=== PATIENT | male | born 1955 | race Caucasian/White ===

== ENCOUNTER 2017-04-14 05:51 | Day surgery (SDC) | payer OTHER ==
[2017-04-11 13:52] VITALS: BMI 39.8
[2017-04-14] MEDS ORDERED: Diazepam 5 MG TAB ONE (06:50)
[2017-04-14] MEDS ORDERED: Midazolam HCl 2 mg/2 ml Vial ONE (07:05)
[2017-04-14] MEDS ORDERED: Fentanyl 100 MCG/2 ML VIAL ONE (07:05)
[2017-04-14] MEDS ORDERED: Heparin 10,000 UNITS/1 ML VIAL ONE ×3 (07:44→08:37)
[2017-04-14] MEDS ORDERED: Clopidogrel Bisulfate 300 MG TAB ONE (07:50)
[2017-04-14] MEDS ORDERED: PROVENTIL INHALER 6.7 G (200 INHALATIONS) INH PRN (12:12)
[2017-04-14] MEDS ORDERED: Diazepam 5 MG TAB PO SCH (12:30)
[2017-04-14] MEDS ORDERED: Allopurinol 300 MG TAB PO SCH ×2 (13:45→21:00)
[2017-04-14] MEDS ORDERED: Gabapentin 300 MG CAP PO SCH ×2 (13:45→21:00)
[2017-04-14] MEDS ORDERED: Clopidogrel Bisulfate 75 MG TAB PO SCH (13:45)
[2017-04-14] MEDS ORDERED: Aspirin 325 MG TAB PO SCH (13:45)
[2017-04-14] MEDS ORDERED: Sacubitril 24.5 MG/Valsartan 25.5 MG TABLET PO SCH ×2 (13:45→21:00)
[2017-04-14] MEDS ORDERED: Iopamidol 370 76% 100 ML VIAL ONE (14:09)
[2017-04-14] MEDS ORDERED: Iopamidol 370 76% 50 ML VIAL FS ONE (14:09)
[2017-04-14] MEDS ORDERED: Mometasone/Formoterol 120 PUFF INHALER INH SCH (18:30)
[2017-04-14] MEDS ORDERED: Potassium Chloride 8 MEQ TAB PO SCH (21:00)
[2017-04-14] MEDS ORDERED: Rosuvastatin 20 MG TAB PO SCH (21:00)
[2017-04-14] MEDS ORDERED: Bumetanide 1 MG TAB PO SCH (21:00)
--- NOTE | 2017-04-14 22:08 | EKG ---
Test Reason : POST STENT Blood Pressure : / mmHG Vent. Rate : 067 BPM Atrial Rate : 067 BPM P-R Int : 182 ms QRS Dur : 100 ms QT Int : 406 ms P-R-T Axes : 079 072 -56 degrees QTc Int : 429 ms Sinus rhythm with Premature atrial complexes with Abberant conduction Nonspecific ST and T wave abnormality Abnormal ECG When compared with ECG of 11-APR-2017 14:11, (Unconfirmed) Abberant conduction is now Present Nonspecific T wave abnormality has replaced inverted T waves in Lateral leads Confirmed by GUEVARA PATEL, DR. Smith ([id number]) on 04/14/2017 10:08:29 PM Referred By: SKYLER Confirmed By:DR. Sarah WATERMAN MD
[2017-04-15] MEDS ORDERED: Clopidogrel Bisulfate 75 MG TAB PO SCH (09:00)
[2017-04-15] MEDS ORDERED: Aspirin 325 MG TAB PO SCH (09:00)
== END 2017-04-14 19:18 | disposition home or self-care (01) ==
LOC: CCL 05:51 → 2SW 12:00 → UNDOADMOB 12:00 → CCL 19:18
PROVIDERS: ATTEND Internal Medicine Cardiovascular Disease
DX: I25.119 Atherosclerotic heart disease of native coronary artery with unspecified angina pectoris (principal); I11.0 Hypertensive heart disease with heart failure; I50.9 Heart failure, unspecified; E78.5 Hyperlipidemia, unspecified; Z79.82 Long term (current) use of aspirin; Z79.899 Other long term (current) drug therapy; Z87.891 Personal history of nicotine dependence
CPT/HCPCS: 76942; 80061; 85347; 92928; 93005; 93455; 99152; 99153; C1769; C1874; C1887; C9600; J1644; J2250; J3010

== ENCOUNTER 2018-06-08 18:42 | Inpatient (IN) | payer OTHER, MEDICARE ==
[2018-06-08] MEDS ORDERED: Diltiazem 125 MG/25 ML ONE (19:22)
[2018-06-08] MEDS ORDERED: Aspirin 325 MG TAB ONE (19:22)
[2018-06-08 19:26] LABS: #Eosinphils 0.2 thou/uL (0.0-0.7); #Lymphocytes 1.5 thou/uL (1.20-3.40); #Monocytes 0.5 thou/uL (0.11-0.59); #Neutrophils 4.5 thou/uL (1.40-6.50); %Basophils 0.7 % (0.0-1.0); %Lymphocytes 22.4 % (21.0-51.0); Hemoglobin 13.2 g/dL (14.0-18.0); Mean Corpuscular HGB CONC 33.3 g/dL (32.0-36.0); Mean Corpuscular Hemoglobin 31.2 pg (27.0-31.0); Mean Corpuscular Volume 93.7 fL (78.0-98.0); Mean Platelet Volume 9.8 fL (7.4-10.4); Platelet Count 120 thou/uL (130-400); RBC Distribution Width 13.1 % (11.5-14.5); Red Blood Cell (RBC) Count 4.23 mill/uL (4.70-6.10); White Blood Cell (WBC) Count 6.8 thou/uL (4.8-10.8)
--- NOTE | 2018-06-08 19:26 | RAD ---
PORTABLE CHEST: 06/08/2018 PROVIDED CLINICAL HISTORY: Atrial fibrillation. COMPARISON: None. FINDINGS: The cardiac silhouette appears enlarged. Median sternotomy changes and CABG changes are seen. No fo bee consolidation, pleural fluid, or pneumothorax apparent. IMPRESSION: Cardiomegaly without evidence for an acute cardiopulmonary process. POS: PAULO
[2018-06-08 19:41] LABS: ALT (SGPT) 36 U/L (8-55); AST (SGOT) 21 U/L (5-34); Albumin 4.2 g/dL (3.4-4.8); Alkaline Phosphatase 186 U/L (40-150); Anion Gap 14 mmol/L (10-20); BUN (Urea Nitrogen) 30 mg/dL (8.4-25.7); Bilirubin, Total 1.7 mg/dL (0.2-1.2); Calc. Creatinine Clearance 0 mL/min (70-130); Calcium 9.1 mg/dL (7.8-10.44); Carbon Dioxide 23 mmol/L (23-31); Chloride 104 mmol/L (98-107); Estimated GFR-MDRD 52; Globulin 3.1 g/dL (2.4-3.5); Glucose 128 mg/dL (80-115); Potassium 3.5 mmol/L (3.5-5.1); Protein, Total 7.3 g/dL (5.8-8.1); Sodium 137 mmol/L (136-145)
[2018-06-08 23:28] LABS: Troponin I Less than 0.010 ng/mL (< 0.028)
[2018-06-09] MEDS ORDERED: Digoxin 0.5 MG/2 ML AMP ONE (01:40)
[2018-06-09] MEDS ORDERED: Acetaminophen 325 MG TAB PO PRN (01:51)
[2018-06-09] MEDS ORDERED: Furosemide 20 MG/2 ML VIAL SLOW IVP SCH (02:15)
[2018-06-09 02:33] LABS: Troponin I Less than 0.010 ng/mL (< 0.028)
[2018-06-09] MEDS ORDERED: Furosemide 20 MG/2 ML VIAL ONE (02:49)
--- NOTE | 2018-06-09 04:27 | HP ---
CHIEF COMPLAINT: Arm injury following up on atrial fibrillation. HISTORY OF PRESENT ILLNESS: The patient is a 63-year-old male who has a significant history of coronary artery disease, who is followed by Dr. Johnson. The patient was in his usual state of health and was working to get a tractor off trailer when he slipped on the trailer and fell and injured his right arm. The patient had basically looks like skin tear area to the right forearm. He decided to not pursue treatment on that initially, but following morning realized that it looked pretty bad, so he presented to the emergency department in [place]. There, the patient was noted to be in atrial fibrillation with rapid ventricular response. They encouraged the patient to be admitted. However, he decided he wanted to follow up as an outpatient. He initially tried to present to Dr. Johnson's office but was unable to get any quickly, so he saw his PCP, Dr. Roblero. Dr. Roblero then sent him directly to the emergency department for atrial fibrillation with rapid ventricular response. The patient reports that he is completely asymptomatic and would have no idea that he had anything wrong with them if he had not presented for the arm situation. He does report that every once in a while he gets very mild dizzy episode, but made nothing of it. It has been very brief. It has been going on for a good while. The patient absolutely denies any chest pains. He has minimal dyspnea on exertion. He does admit to having significant chronic peripheral edema, which has been treated intermittently with varying amounts of diuretics but reports that it has gotten worse over the last several days. PAST MEDICAL HISTORY: Notable for significant coronary artery disease, status post bypass and subsequent stenting, hyperlipidemia, hypertension, tobacco abuse, looks like probably some COPD as well. He also has a history of atrial flutter diagnosed in 2012. FAMILY HISTORY: No significant cardiac disease. SOCIAL HISTORY: The patient is , lives with his . He has a history of smoking, but quit a number of years ago. He reports he drinks about a 12-pack of beer each weekend, but generally nothing on weekdays. He is full code and his to be a surrogate decision maker. ALLERGIES: NONE. MEDICATIONS: 1. Lisinopril 10 mg daily. 2. Allopurinol 300 mg b.i.d. 3. Gabapentin 300 mg b.i.d. 4. Valsartan 160 mg daily. 5. Potassium 10 mEq b.i.d. 6. Coreg 25 mg b.i.d. 7. Zetia 10 mg daily. 8. Plavix 75 mg daily. 9. Bumex 2 mg b.i.d. 10. ProAir HFA inhaled q.i.d. p.r.n. 11. Advair Diskus 500/50, one inhalation b.i.d. 12. Symbicort 160-4.5 mcg actuations b.i.d. 13. Entresto, unclear on the dose, twice a day. PHYSICAL EXAMINATION: VITAL SIGNS: Initially, patient's heart rate was 128, BP 129/97, respirations 18, O2 saturation 100% on room air, and temperature 98.3. Most recent, BP 98/77, pulse 123, respirations 15, O2 saturation 98% on room air. GENERAL APPEARANCE: Age-appropriate male, who is awake, alert, oriented, pleasant, cooperative, in no distress. HEENT: PERRL. No OP lesions. NECK: Supple and symmetric. HEART: Tachycardic, irregular, slightly hyperdynamic with no murmurs or rubs. LUNGS: Diminished throughout with some scattered rales. ABDOMEN: Soft, nontender, and nondistended. Positive bowel sounds. No masses. No organomegaly. EXTREMITIES: Have 2+ pitting edema all the way up to the level of the knee bilaterally. NEUROLOGIC: The patient is intact. He has no evidence of localizing deficits. PSYCHIATRIC: The patient has normal affect and behavior. SKIN: Tear type lesions in the right forearm, generally well dressed with bandaging. EKG, atrial fibrillation at 120s. No ischemic changes. LABORATORY DATA: White count 6.8, hemoglobin 13.2, platelets 120. Sodium 137, potassium 3.5, chloride 104, CO2 of 23, BUN 30, creatinine 1.38, total bilirubin is 1.7, glucose 128, alkaline phosphatase 186. BNP 380.7. Chest x-ray shows cardiomegaly without evidence of acute cardiopulmonary disease. IMPRESSION AND PLAN: 1. Atrial fibrillation with rapid ventricular response. The patient is completely asymptomatic. He has a history of significant coronary artery disease, status post bypass with subsequent requirement for stenting. He was noted to have decreased ejection fraction as far back as 2011 at 30% to 35%. It is unknown it is subsequent to that as I do not have any records otherwise. The patient has been started on a Cardizem drip. He had a bolus and is at 10 mg an hour. His pressure is now in the 90s, but his heart rate has not really improved. We will give him one dose of digoxin and see how he respond. May need to consider an amiodarone drip. We will go ahead and start him on some heparin given his current renal function and get a cardiology consult. 2. Pulmonary. The patient appears to have some chronic obstructive pulmonary disease, is on multiple inhaled medications. He appears to be quite stable, is asymptomatic and well compensated. 3. Chronic kidney disease, stage 3. The patient's creatinine is highly variable, but it looks most consistent with stage 3 chronic kidney disease. 4. Hyperbilirubinemia. This appears to be longstanding and chronic, mild, and likely benign. 5. Hypertension. Continue with the patient's home medications. He is on valsartan and lisinopril. We will hold on the lisinopril for now given his blood pressure issues. 6. Peripheral edema, unclear etiology. It appears to be chronic and long-standing, slightly worse of late. He is on diuretics routinely at home. I will actually hold that and give him a dose of IV as it is significant at the moment. His BNP is not substantially elevated suggesting that this is not decompensated heart failure, although that is still a possibility. 7. Hyperlipidemia. Continue with Zetia. 8. Right forearm injury. We will ask Wound Care to see him for any recommendations. Job ID: [id number]
[2018-06-09] MEDS: Budesonide 0.5 MG/2 ML NEB INH SCH ×2 (07:13→19:03)
[2018-06-09] MEDS: Carvedilol 25 MG TAB PO SCH ×2 (09:28→16:43)
[2018-06-09] MEDS: Gabapentin 300 MG CAP PO SCH ×2 (09:29→20:38)
[2018-06-09] MEDS: Valsartan 80 MG TAB PO SCH (09:30)
[2018-06-09] MEDS: Sacubitril 24.5 MG/Valsartan 25.5 MG TABLET PO SCH ×2 (09:30→20:38)
--- NOTE | 2018-06-09 09:48 | PRG ---
Same day follow up note: DATE OF SERVICE: 06/09/2018 SUBJECTIVE: The patient is seen/evaluated at 9:15 a.m. this morning, remained in the emergency department with a hold bed. Presently, on Cardizem 5 mg/hour, heart rate at low 100s, hemodynamically stable. He is comfortable, denies chest pain/chest pressure/dyspnea. He feels sore over his right arm. No nausea, no vomiting. I spoke with the bedside nurse, confirmed request for cardiac consultation today. The patient recalls in the past with atrial tachyarrhythmias, is not presently on long-term anticoagulation. He does take antiplatelet therapy with Plavix. Currently, holding orders with heparin 5000 units subcutaneously 3 times per day. No further questions at the end of our interview this morning. OBJECTIVE: LUNGS: Overall clear. HEART: Irregularly irregular and mildly tachycardic. EXTREMITIES: Lower extremity edema is present, 2+. Right arm presently clean/dry/intact/dressed, with underlying skin tear present. Job ID: [id number] [facility]
[2018-06-09] MEDS: Heparin 5,000 UNITS/ML VIAL SC SCH ×3 (11:42→20:38)
[2018-06-09 13:05] VITALS: BMI 40.6
[2018-06-09] MEDS: Diltiazem 125 MG in Sodium Chloride 0.9% 100 ML IVPB SCH (20:38)
[2018-06-09] MEDS ORDERED: Diltiazem HCl SR 60 mg Capsule PO SCH (22:45)
[2018-06-10] MEDS ORDERED: Diltiazem HCl SR 60 mg Capsule PO SCH (06:00)
[2018-06-10] MEDS: Budesonide 0.5 MG/2 ML NEB INH SCH ×2 (07:35→18:57)
[2018-06-10] MEDS: Sacubitril 24.5 MG/Valsartan 25.5 MG TABLET PO SCH ×2 (08:25→20:53)
[2018-06-10] MEDS: Heparin 5,000 UNITS/ML VIAL SC SCH (08:25)
[2018-06-10] MEDS: Gabapentin 300 MG CAP PO SCH ×3 (08:26→20:53)
[2018-06-10] MEDS: Valsartan 80 MG TAB PO SCH (08:26)
[2018-06-10] MEDS: Carvedilol 25 MG TAB PO SCH ×2 (08:26→16:13)
[2018-06-10] MEDS ORDERED: Heparin 5,000 UNITS/ML VIAL SC SCH (09:00)
[2018-06-10] MEDS ORDERED: BUMETANIDE 1 MG PO SCH (09:00)
[2018-06-10] MEDS ORDERED: Ezetimibe 10 MG TAB PO SCH (09:00)
--- NOTE | 2018-06-10 09:40 | CON ---
DATE OF CONSULTATION: 06/09/2018 REASON FOR CONSULTATION: Atrial fibrillation. PRIMARY AVIATION MECHANIC: Evin Johnson MD HISTORY OF PRESENT ILLNESS: Mr. Crump is a 63-year-old gentleman with past medical history of paroxysmal atrial fibrillation, recently presented with arm injury. He presented to the outpatient clinic. He was found to be in atrial fibrillation with RVR. He was therefore recommended to proceed with inpatient observation. Mr. Crump does have a previous history of atrial fibrillation. He is currently not on anticoagulation therapy. He states he underwent an ablation in addition to a maze procedure. PAST MEDICAL HISTORY: CAD, status post bypass surgery; hyperlipidemia; hypertension; previous tobacco abuse; COPD. SOCIAL HISTORY: Positive tobacco use, but no current use. Positive alcohol use. ALLERGIES: NONE. HOME MEDICATIONS: Include, 1. Lisinopril. 2. Gabapentin. 3. Allopurinol. 4. Valsartan. 5. Potassium chloride. 6. Zetia. 7. Plavix. 8. Bumex. 9. ProAir. 10. Advair. 11. Symbicort. 12. Entresto. REVIEW OF SYMPTOMS: A 10-point review of systems is reviewed and as above, otherwise negative. PHYSICAL EXAMINATION: GENERAL: Patient is a pleasant 63-year-old male who is in no acute distress. The patient appears their stated age. VITAL SIGNS: Blood pressure 109/62, pulse 119, and respirations 20. NEUROLOGIC: The patient is alert and oriented x3 with no focal neurologic deficits. HEENT: Sclerae without icterus. Mouth has moist mucous membranes with normal pallor. NECK: No JVD. Carotid upstroke brisk. No bruits bilaterally. LUNGS: Clear to auscultation with unlabored respirations. BACK: No scoliosis or kyphosis. CARDIAC: Irregularly irregular. ABDOMEN: Soft, nontender, nondistended. No peritoneal signs present. No hepatosplenomegaly. No abnormal striae. EXTREMITIES: 2+ femoral and 2+ dorsalis pedis pulses. No cyanosis, clubbing, or edema. SKIN: No gross abnormalities. PERTINENT LABORATORY DATA: Hemoglobin 13.2. Creatinine 1.39. Total bilirubin 1.7. BNP of 380. IMPRESSION: 1. Atrial fibrillation with rapid ventricular response. 2. Coronary artery disease. 3. Status post bypass surgery. RECOMMENDATIONS: At this point, he is currently on IV Cardizem. We will continue. We will supplement with p.o. Cardizem. He is also on high-dose carvedilol at 25 mg one p.o. b.i.d. If he is not able to be rate controlled, may consider a DILSHAD cardioversion. He will likely need to be placed on amiodarone given history of CAD, status post bypass surgery. May also discuss with EP. Echo with Doppler has been ordered and will be reviewed. Job ID: [id number]
[2018-06-10] MEDS ORDERED: Bumetanide 1 MG/4 ML VIAL IVP SCH (09:45)
[2018-06-10 10:42] LABS: #Eosinphils 0.2 thou/uL (0.0-0.7); #Lymphocytes 1.4 thou/uL (1.20-3.40); #Monocytes 0.6 thou/uL (0.11-0.59); #Neutrophils 5.1 thou/uL (1.40-6.50); %Basophils 0.4 % (0.0-1.0); %Eosinophils 2.7 % (0.0-10.0); %Lymphocytes 18.8 % (21.0-51.0); %Monocytes 8.5 % (0.0-10.0); %Neutrophils 69.6 % (42.0-75.0); Hemoglobin 12.7 g/dL (14.0-18.0); Mean Corpuscular HGB CONC 33.1 g/dL (32.0-36.0); Mean Corpuscular Hemoglobin 31.4 pg (27.0-31.0); Mean Corpuscular Volume 94.7 fL (78.0-98.0); Mean Platelet Volume 9.3 fL (7.4-10.4); Platelet Count 128 thou/uL (130-400); RBC Distribution Width 13.2 % (11.5-14.5); Red Blood Cell (RBC) Count 4.06 mill/uL (4.70-6.10); White Blood Cell (WBC) Count 7.4 thou/uL (4.8-10.8)
[2018-06-10 10:56] LABS: Anion Gap 12 mmol/L (10-20); BUN (Urea Nitrogen) 14 mg/dL (8.4-25.7); Calc. Creatinine Clearance 150 mL/min (70-130); Calcium 9.4 mg/dL (7.8-10.44); Carbon Dioxide 27 mmol/L (23-31); Chloride 105 mmol/L (98-107); Estimated GFR-MDRD 75; Glucose 145 mg/dL (80-115); Magnesium 2.5 mg/dL (1.6-2.6); Potassium 3.7 mmol/L (3.5-5.1); Sodium 140 mmol/L (136-145)
[2018-06-10] MEDS: Rosuvastatin 20 MG TAB PO SCH (11:03)
[2018-06-10] MEDS: Allopurinol 300 MG TAB PO SCH ×2 (11:04→20:52)
[2018-06-10] MEDS: Ezetimibe 10 MG TAB PO SCH (11:04)
[2018-06-10] MEDS: Clopidogrel Bisulfate 75 MG TAB PO SCH (11:04)
[2018-06-10] MEDS: Bumetanide 1 MG TAB PO SCH (16:13)
--- NOTE | 2018-06-10 19:00 | PDOC.CTH ---
Cardiology Progress Note - Subjective No current symptoms present. Recent EF 30-35%. Still on IV CCB and coreg 25mg BID - Objective Vital Signs Temp Pulse Resp BP Pulse Ox 06/10/18 16:14 97.4 F L 74 18 123/73 96 06/10/18 11:12 97.4 F L 77 18 111/75 93 L 06/10/18 08:18 97.7 F 76 18 124/83 96 06/10/18 07:32 81 20 95 Admit Weight 317 lb Weight 317 lb 06/09/18 06/10/18 06/11/18 06:59 06:59 06:59 Intake Total 1080 Output Total 1325 Balance -1325 1080 - Physical Examination General/Neuro: alert & oriented x3, NAD Neck: carotid US brisk, no JVD present Lungs: CTA, unlabored respirations Heart: other: (irr) Abdomen: NT/ND, soft Extremities: + femoral B - Labs Result Diagrams: 06/10/18 10:29 06/10/18 10:29 Troponin/CKMB Troponin I Less than 0.010 ng/mL (< 0.028) 06/09/18 02:01 - Assessment/Plan Afib ISchemic CM Pt with previous h/o afib. Pt is s/p ablation in the past. Pt has also worn lifevest per Dr. Johnson but not interested in wearing it again Recommend rate control Added CCB to IV CCB Consult with EP for options Consider DILSHAD, CV but only anti-arrhythmic option is amiodarone and may take weeks for proper loading
[2018-06-10] MEDS: Enoxaparin Sodium 80 MG/0.8 ML SYRINGE SC SCH (20:52)
--- NOTE | 2018-06-10 21:23 | PDOC.PN ---
- Subjective Encounter Start Date: 06/10/18 Encounter Start Time: 18:30 Patient seen and examined for CHF/Afib with RVR. Feels better. SOB improving. No new complaints. No overnight events - Objective Resuscitation Status - Order Detail: 06/09/18 01:46 Resuscitation Status Routine Resuscitation Status: FULL: Full Resuscitation MAR Reviewed: Yes Vital Signs & Weight: Vital Signs (12 hours) Temp Pulse Resp BP Pulse Ox 06/10/18 16:14 97.4 F L 74 18 123/73 96 06/10/18 11:12 97.4 F L 77 18 111/75 93 L Weight Admit Weight 317 lb Weight 317 lb I&O: 06/09/18 06/10/18 06/11/18 06:59 06:59 06:59 Intake Total 1080 Output Total 1325 Balance -1325 1080 Result Diagrams: 06/11/18 04:00 06/11/18 04:00 EKG Reviewed by me: Yes (Tele Afib) Phys Exam - Physical Examination Constitutional: NAD Respiratory: no wheezing Rales at bases Cardiovascular: no rub, irregular Gastrointestinal: soft, non-tender, positive bowel sounds Musculoskeletal: edema present Neurological: moves all 4 limbs Dx/Plan (1) Acute on chronic systolic ACC/AHA stage C congestive heart failure Code(s): I50.23 - ACUTE ON CHRONIC SYSTOLIC (CONGESTIVE) HEART FAILURE Status : Acute (2) Atrial fibrillation with RVR Code(s): I48.91 - UNSPECIFIED ATRIAL FIBRILLATION Status: Acute (3) Morbid obesity with BMI of 40.0-44.9, adult Code(s): E66.01 - MORBID (SEVERE) OBESITY DUE TO EXCESS CALORIES; Z68.41 - BODY MASS INDEX (BMI) 40.0-44.9, ADULT Status: Chronic (4) CKD (chronic kidney disease) stage 3, GFR 30-59 ml/min Code(s): N18.3 - CHRONIC KIDNEY DISEASE, STAGE 3 (MODERATE) Status: Chronic (5) CAD (coronary artery disease) Code(s): I25.10 - ATHSCL HEART DISEASE OF [place] CORONARY ARTERY W/O ANG PCTRS Status: Chronic (6) Other issues per previous notes - Plan DVT proph w/lovenox DC Cardizem drip in AM if HR controlled. -: Resume home diuretics -: Cont PO Cardizem with Coreg -: Started on Anticoag per Cardiology, -: On Entresto, Will dc Losartan, AM labs Review of Systems - Review of Systems Respiratory: Cough, SOB with Excertion. negative: Dry, Shortness of Breath, Hemoptysis, Pleuritic Pain, Sputum, Wheezing Cardiovascular: negative: chest pain, palpitations, orthopnea, paroxysmal nocturnal dyspnea, edema, light headedness, other Gastrointestinal: negative: Nausea, Vomiting, Abdominal Pain, Diarrhea, Constipation, Melena, Hematochezia, Other - Medications/Allergies Allergies/Adverse Reactions: Allergies Allergy/AdvReac Type Severity Reaction Status Date / Time No Known Allergies Allergy Verified 06/09/18 13:23 Medications: Current Medications Acetaminophen (Tylenol) 650 mg PO Q4H PRN PRN Reason: Headache/Fever/Mild Pain (1-3) Albuterol/Ipratropium (Duoneb) 3 ml NEB [id number] PRN PRN Reason: SOB &/or Wheezing Last Admin: 06/10/18 18:58 Dose: 3 ml Allopurinol (Zyloprim) 300 mg PO BID [facility] Last Admin: 06/10/18 20:52 Dose: 300 mg Budesonide (Pulmicort Neb Solution) 0.5 mg INH BID-RT [facility] Last Admin: 06/10/18 18:57 Dose: 0.5 mg Bumetanide (Bumex) 1 mg PO BID-AC [facility] Last Admin: 06/10/18 16:13 Dose: 1 mg Carvedilol (Coreg) 25 mg PO BID-WM [facility] Last Admin: 06/10/18 16:13 Dose: 25 mg Clopidogrel Bisulfate (Plavix) 75 mg PO QAM [facility] Last Admin: 06/10/18 11:04 Dose: 75 mg Diltiazem HCl (Cardizem) 60 mg PO Q6HR [facility] Last Admin: 06/10/18 17:17 Dose: 60 mg Ezetimibe (Zetia) 10 mg PO DAILY [facility] Last Admin: 06/10/18 11:04 Dose: 10 mg Enoxaparin Sodium (Lovenox) 140 mg SC 0900,2100 [facility] Last Admin: 06/10/18 20:52 Dose: 140 mg Gabapentin (Neurontin) 300 mg PO BID [facility] Last Admin: 06/10/18 20:53 Dose: 300 mg Diltiazem HCl 125 mg/ Sodium (Chloride) 125 mls @ 5 mls/hr IVPB INF [place]; Protocol Last Admin: 06/09/18 20:38 Dose: 125 mls Rosuvastatin Calcium (Crestor) 20 mg PO DAILY [facility] Last Admin: 06/10/18 11:03 Dose: 20 mg Sacubitril/Valsartan (Entresto 24.5 Mg-25.5 Mg Tablet) 1 tab PO BID [facility] Last Admin: 06/10/18 20:53 Dose: 1 tab Sodium Chloride (Flush - Normal Saline) 10 ml IVF Q12HR [facility] Last Admin: 06/10/18 20:54 Dose: Not Given Sodium Chloride (Flush - Normal Saline) 10 ml IVF PRN PRN PRN Reason: Saline Flush
[2018-06-11] MEDS: Diltiazem 125 MG in Sodium Chloride 0.9% 100 ML IVPB SCH (00:06)
[2018-06-11 05:59] LABS: #Eosinphils 0.2 thou/uL (0.0-0.7); #Lymphocytes 1.2 thou/uL (1.20-3.40); #Monocytes 0.5 thou/uL (0.11-0.59); #Neutrophils 3.3 thou/uL (1.40-6.50); %Basophils 0.5 % (0.0-1.0); %Eosinophils 3.6 % (0.0-10.0); %Lymphocytes 23.7 % (21.0-51.0); %Monocytes 9.6 % (0.0-10.0); %Neutrophils 62.5 % (42.0-75.0); Hemoglobin 11.7 g/dL (14.0-18.0); Mean Corpuscular HGB CONC 31.5 g/dL (32.0-36.0); Mean Corpuscular Hemoglobin 30.1 pg (27.0-31.0); Mean Corpuscular Volume 95.6 fL (78.0-98.0); Platelet Count 110 thou/uL (130-400); RBC Distribution Width 13.3 % (11.5-14.5); White Blood Cell (WBC) Count 5.2 thou/uL (4.8-10.8)
[2018-06-11 06:32] LABS: Anion Gap 15 mmol/L (10-20); BUN (Urea Nitrogen) 15 mg/dL (8.4-25.7); Calc. Creatinine Clearance 174 mL/min (70-130); Calcium 8.9 mg/dL (7.8-10.44); Carbon Dioxide 21 mmol/L (23-31); Chloride 105 mmol/L (98-107); Estimated GFR-MDRD 89; Glucose 111 mg/dL (80-115); Magnesium 2.1 mg/dL (1.6-2.6); Potassium 3.2 mmol/L (3.5-5.1); Sodium 138 mmol/L (136-145)
[2018-06-11] MEDS: Budesonide 0.5 MG/2 ML NEB INH SCH ×2 (06:34→18:22)
[2018-06-11] MEDS: Clopidogrel Bisulfate 75 MG TAB PO SCH (08:45)
[2018-06-11] MEDS: Sacubitril 24.5 MG/Valsartan 25.5 MG TABLET PO SCH ×2 (08:45→21:25)
[2018-06-11] MEDS: Potassium Chloride 20 MEQ TAB PO SCH ×2 (08:45→16:42)
[2018-06-11] MEDS: Allopurinol 300 MG TAB PO SCH ×2 (08:45→21:25)
[2018-06-11] MEDS: Gabapentin 300 MG CAP PO SCH ×2 (08:45→21:25)
[2018-06-11] MEDS: Rosuvastatin 20 MG TAB PO SCH (08:45)
[2018-06-11] MEDS: Carvedilol 25 MG TAB PO SCH ×2 (08:45→16:42)
[2018-06-11] MEDS: Bumetanide 1 MG TAB PO SCH ×2 (08:45→16:41)
[2018-06-11] MEDS: Ezetimibe 10 MG TAB PO SCH (08:46)
[2018-06-11] MEDS: Enoxaparin Sodium 80 MG/0.8 ML SYRINGE SC SCH ×2 (08:48→21:25)
[2018-06-11] MEDS ORDERED: PROPOFOL 20 ML ONE (13:59)
[2018-06-11] MEDS ORDERED: PROPOFOL 200 MG/20 ML VIAL ONE (14:39)
--- NOTE | 2018-06-11 22:25 | PDOC.PN ---
- Subjective Encounter Start Date: 06/11/18 Encounter Start Time: 16:00 Patient seen and examined for Afib with RVR with CHF. SOB improving. No new complaints. No overnight events - Objective Resuscitation Status - Order Detail: 06/09/18 01:46 Resuscitation Status Routine Resuscitation Status: FULL: Full Resuscitation MAR Reviewed: Yes Vital Signs & Weight: Vital Signs (12 hours) Temp Pulse Resp BP Pulse Ox 06/11/18 21:23 99.7 F H 64 18 121/72 93 L 06/11/18 18:22 71 16 92 L 06/11/18 16:00 97.6 F 69 18 133/89 93 L 06/11/18 11:47 98.9 F 106 H 16 110/68 94 L Weight Admit Weight 317 lb Weight 317 lb I&O: 06/10/18 06/11/18 06/12/18 06:59 06:59 06:59 Intake Total 1080 960 Balance 1080 960 Result Diagrams: 06/11/18 04:00 06/11/18 04:00 EKG Reviewed by me: Yes (Tele SR) Phys Exam - Physical Examination Constitutional: NAD Respiratory: no wheezing few rales at bases Cardiovascular: RRR, no rub Gastrointestinal: soft, non-tender, positive bowel sounds Musculoskeletal: edema present Neurological: moves all 4 limbs Dx/Plan (1) Acute on chronic systolic ACC/AHA stage C congestive heart failure Code(s): I50.23 - ACUTE ON CHRONIC SYSTOLIC (CONGESTIVE) HEART FAILURE Status : Acute (2) Atrial fibrillation with RVR Code(s): I48.91 - UNSPECIFIED ATRIAL FIBRILLATION Status: Acute Comment: s/ p DILSHAD/CV (3) Morbid obesity with BMI of 40.0-44.9, adult Code(s): E66.01 - MORBID (SEVERE) OBESITY DUE TO EXCESS CALORIES; Z68.41 - BODY MASS INDEX (BMI) 40.0-44.9, ADULT Status: Chronic (4) CKD (chronic kidney disease) stage 3, GFR 30-59 ml/min Code(s): N18.3 - CHRONIC KIDNEY DISEASE, STAGE 3 (MODERATE) Status: Chronic (5) CAD (coronary artery disease) Code(s): I25.10 - ATHSCL HEART DISEASE OF [place] CORONARY ARTERY W/O ANG PCTRS Status: Chronic (6) Hypokalemia Code(s): E87.6 - HYPOKALEMIA Status: Acute (7) Other issues per previous notes - Plan cont current plan of care, plan discussed w/ family, DVT proph w/lovenox, DVT proph w/SCDs Cont Coreg with Cardizem -: Await EP input -: Cont Bumex -: Replace Potassium -: AM labs Review of Systems - Review of Systems Respiratory: SOB with Excertion. negative: Cough, Dry, Shortness of Breath, Hemoptysis, Pleuritic Pain, Sputum, Wheezing Cardiovascular: edema. negative: chest pain, palpitations, orthopnea, paroxysmal nocturnal dyspnea, light headedness, other - Medications/Allergies Allergies/Adverse Reactions: Allergies Allergy/AdvReac Type Severity Reaction Status Date / Time No Known Allergies Allergy Verified 06/09/18 13:23 Medications: Current Medications Acetaminophen (Tylenol) 650 mg PO Q4H PRN PRN Reason: Headache/Fever/Mild Pain (1-3) Albuterol/Ipratropium (Duoneb) 3 ml NEB [id number] PRN PRN Reason: SOB &/or Wheezing Last Admin: 06/11/18 18:25 Dose: 3 ml Allopurinol (Zyloprim) 300 mg PO BID [facility] Last Admin: 06/11/18 21:25 Dose: 300 mg Budesonide (Pulmicort Neb Solution) 0.5 mg INH BID-RT [facility] Last Admin: 06/11/18 18:22 Dose: 0.5 mg Bumetanide (Bumex) 1 mg PO BID-AC [facility] Last Admin: 06/11/18 16:41 Dose: 1 mg Carvedilol (Coreg) 25 mg PO BID-WM [facility] Last Admin: 06/11/18 16:42 Dose: 25 mg Clopidogrel Bisulfate (Plavix) 75 mg PO QAM [facility] Last Admin: 06/11/18 08:45 Dose: 75 mg Diltiazem HCl (Cardizem) 60 mg PO Q6HR [facility] Last Admin: 06/11/18 17:16 Dose: 60 mg Ezetimibe (Zetia) 10 mg PO DAILY [facility] Last Admin: 06/11/18 08:46 Dose: 10 mg Enoxaparin Sodium (Lovenox) 140 mg SC 0900,2100 [facility] Last Admin: 06/11/18 21:25 Dose: 140 mg Gabapentin (Neurontin) 300 mg PO BID [facility] Last Admin: 06/11/18 21:25 Dose: 300 mg Potassium Chloride (K-Dur) 20 meq PO BID-WM [facility] Last Admin: 06/11/18 16:42 Dose: 20 meq Rosuvastatin Calcium (Crestor) 20 mg PO DAILY [facility] Last Admin: 06/11/18 08:45 Dose: 20 mg Sacubitril/Valsartan (Entresto 24.5 Mg-25.5 Mg Tablet) 1 tab PO BID [facility] Last Admin: 06/11/18 21:25 Dose: 1 tab Sodium Chloride (Flush - Normal Saline) 10 ml IVF Q12HR [facility] Last Admin: 06/11/18 21:26 Dose: 10 ml Sodium Chloride (Flush - Normal Saline) 10 ml IVF PRN PRN PRN Reason: Saline Flush
[2018-06-12] MEDS: Budesonide 0.5 MG/2 ML NEB INH SCH (06:39)
[2018-06-12 06:45] LABS: Anion Gap 15 mmol/L (10-20); BUN (Urea Nitrogen) 16 mg/dL (8.4-25.7); Calc. Creatinine Clearance 154 mL/min (70-130); Calcium 9.1 mg/dL (7.8-10.44); Carbon Dioxide 24 mmol/L (23-31); Chloride 104 mmol/L (98-107); Estimated GFR-MDRD 78; Glucose 118 mg/dL (80-115); Magnesium 2.2 mg/dL (1.6-2.6); Potassium 3.5 mmol/L (3.5-5.1); Sodium 139 mmol/L (136-145)
[2018-06-12 06:58] LABS: #Eosinphils 0.2 thou/uL (0.0-0.7); #Lymphocytes 1.2 thou/uL (1.20-3.40); #Monocytes 0.6 thou/uL (0.11-0.59); #Neutrophils 4.5 thou/uL (1.40-6.50); %Basophils 0.2 % (0.0-1.0); %Eosinophils 2.4 % (0.0-10.0); %Lymphocytes 18.2 % (21.0-51.0); %Monocytes 8.9 % (0.0-10.0); %Neutrophils 70.3 % (42.0-75.0); Hemoglobin 11.9 g/dL (14.0-18.0); Mean Corpuscular HGB CONC 33.4 g/dL (32.0-36.0); Mean Corpuscular Hemoglobin 31.4 pg (27.0-31.0); Mean Platelet Volume 9.5 fL (7.4-10.4); Platelet Count 111 thou/uL (130-400); RBC Distribution Width 13.2 % (11.5-14.5); Red Blood Cell (RBC) Count 3.79 mill/uL (4.70-6.10); White Blood Cell (WBC) Count 6.4 thou/uL (4.8-10.8)
--- NOTE | 2018-06-12 07:58 | CON ---
DATE OF CONSULTATION: 06/11/2018 This is an electrophysiology followup note. HISTORY OF PRESENT ILLNESS: I am seeing Mr. Crump at our [facility] as an Electrophysiology cruise consultant for the following problems: 1. Persisting and recurrent atrial fibrillation, currently with rapid rates. a. Prior history of atrial flutter ablation about 6 years ago. 2. Acute on chronic systolic congestive heart failure with ischemic cardiomyopathy. a. Prior history of coronary artery bypass grafting surgery x4 vessels in the past. b. Prior history of stent placements. c. 2D echo from this admit, on 06/10/2018 shows LVEF 35% to 40%. d. Left heart catheterization on 11/02/2013 had showed diffuse LAD, circumflex, and RCA, narrowing occluded graft in the RCA, patent graft to the obtuse marginal branches, SVG to circumflex 95% stenosis, patent LEDBETTER to LAD, and Xience drug-eluting stent was placed in the obtuse marginal graft. 3. History of COPD and smoking. 4. Obesity. 5. Hyperlipidemia. 6. History of recent accidental fall, but no loss of consciousness, injury of the right forearm. ALLERGIES: NONE. MEDICATIONS: At home included: 1. Lisinopril. 2. Allopurinol. 3. Gabapentin. 4. Valsartan. 5. Potassium. 6. Coreg 25 twice a day. 7. Zetia. 8. Plavix 75 mg daily. 9. Bumex 2 mg twice a day. 10. ProAir. 11. Advair inhaler. 12. Symbicort. 13. Entresto twice a day. SUBJECTIVE: Mr. Crump is in his usual health until recently working on his tractor, his trailer slipped off and injured his right arm, had a skin tear in the right forearm and initially was treated by himself. Then, in the ER in [place], he was found to be in atrial fibrillation, rapid ventricular rates. He did notice some increasing fatigue and tiredness for the last couple of weeks, but he denies palpitations. He also has episodes of dizziness, lightheadedness, near syncopal spells, but did not completely pass out. He does have minimal dyspnea on exertion. Denies angina-like chest pains. No fever, chills, or cough. No stroke-like symptoms or bleeding issues are noted. Rest of 12-point system otherwise unremarkable. PAST MEDICAL HISTORY: As above. The patient has been evaluated by Dr. Hall back in 2011. Then LVEF was 35% to 40%. He underwent an EP study, although, records are not available since I included a successful CTI ablation as well as VT induction studies, which were negative. He was discharged then on LifeVest, but eventually was not implanted with the device. He is [place] Heart Association class 1 to 2 functional status, had issues with morbid obesity. Rest of 12-point system otherwise unremarkable. SOCIAL HISTORY: The patient is smoking EtOH or drug abuse. FAMILY HISTORY: Not contributory. OBJECTIVE DATA: VITAL SIGNS: Blood pressure 110/68, heart rate 106, respirations 16, and temperature 98.9 degrees Fahrenheit. GENERAL: Alert and oriented man, morbidly obese, in no apparent distress. NECK: Supple. Jugular veins not distended. Difficult to visualize. CHEST: Coarse without crackles. HEART: Sounds are irregularly irregular. S1 and S2 are variable. No murmur or gallop. ABDOMEN: Benign. Bowel sounds positive. EXTREMITIES: Lower extremities without edema, clubbing, or cyanosis. DATABASE: EKG is reviewed, reveal 2 atrial fibrillation, rate of 128 beats per minute. The QRS is narrow at 104 milliseconds, nonspecific ST-T changes are seen. LABORATORY DATA: White count today 5.2, hemoglobin 11.7, platelet count is 110. Sodium 138, potassium 3.2 initially 3.7 yesterday, BUN is 15, creatinine 0.86. Troponin levels are less than 0.01. BNP is 380 on presentation. Chest x-ray report from the 7th revealing cardiomegaly without evidence of acute cardiopulmonary process. ASSESSMENT AND PLAN: Mr. Crump is a 63-year-old man with prior history of congestive heart failure and LV systolic dysfunction with moderately reduced LVEF measured in the settings of atrial arrhythmias. He has symptoms of lightheadedness and some dyspnea while atrial fibrillation present with rapid rate. We discussed these issues with him. I detailed the etiology of atrial fibrillation, differences between atrial fibrillation and atrial flutter assess treatment options. We discussed option for cardioversion, possible need for suppressive therapy as well. It may be considered adding sotalol to the current regimen, alternatively amiodarone could be also contemplated. Tikosyn also a possibility with more prolonged monitoring. On the other hand, he has significant LV dysfunction. There is some risk for arrhythmias, Cordarone might be a better choice, although , long-term may not be optimal medication for him and his history of chronic obstructive pulmonary disease and asthma. We also discussed option for ablation therapy. This may be a reasonable consideration, although, due to his morbid obesity, this case somewhat increase risk. We will discuss this option as an outpatient as well. For now, I will recommend a DILSHAD-guided cardioversion and possibly starting an antiarrhythmic suppressive therapy. Again, amiodarone might be a reasonable choice. He is currently on aspirin and Plavix. He may benefit from adding a novel oral anticoagulant Eliquis versus Xarelto to his regimen to avoid triple therapy, discontinuation of the aspirin or Plavix could be considered if his coronary status deemed to be stable. Morbid obesity, weight loss is strongly advised. Thank you for the consult. We will follow up with you in an outpatient. Job ID: [id number] MTDD
[2018-06-12 08:01] VITALS: TEMP 98.2
[2018-06-12] MEDS: Potassium Chloride 20 MEQ TAB PO SCH (08:44)
[2018-06-12] MEDS: Sacubitril 24.5 MG/Valsartan 25.5 MG TABLET PO SCH (08:44)
[2018-06-12] MEDS: Rosuvastatin 20 MG TAB PO SCH (08:44)
[2018-06-12] MEDS: Gabapentin 300 MG CAP PO SCH (08:44)
[2018-06-12] MEDS: Allopurinol 300 MG TAB PO SCH (08:44)
[2018-06-12] MEDS: Clopidogrel Bisulfate 75 MG TAB PO SCH (08:44)
[2018-06-12] MEDS: Carvedilol 25 MG TAB PO SCH (08:44)
[2018-06-12] MEDS: Ezetimibe 10 MG TAB PO SCH (08:44)
[2018-06-12] MEDS: Bumetanide 1 MG TAB PO SCH ×2 (08:45→18:07)
[2018-06-12] MEDS: Enoxaparin Sodium 80 MG/0.8 ML SYRINGE SC SCH (08:45)
--- NOTE | 2018-06-12 13:22 | PDOC.CTH ---
Cardiology Progress Note - Subjective Doing well. No symptoms noted. CV yesterday. In SR. - Objective Vital Signs Temp Pulse Resp BP Pulse Ox 06/12/18 11:31 98.2 F 65 18 126/69 93 L 06/12/18 07:35 93 L 06/12/18 07:27 98.2 F 67 18 125/73 93 L 06/12/18 06:39 75 16 99 06/12/18 06:37 75 16 99 06/12/18 02:52 97.8 F 65 20 135/73 92 L Admit Weight 317 lb Weight 316 lb 14.4 oz 06/11/18 06/12/18 06/13/18 06:59 06:59 06:59 Intake Total 1080 1680 Balance 1080 1680 - Physical Examination General/Neuro: alert & oriented x3, NAD Neck: carotid US brisk, no JVD present Lungs: CTA, unlabored respirations Heart: PMI normal, RRR Abdomen: NT/ND, soft Extremities: + femoral B - Telemetry Telemetry Rhythm: SR - Labs Result Diagrams: 06/12/18 06:06 06/12/18 06:06 Troponin/CKMB Troponin I Less than 0.010 ng/mL (< 0.028) 06/09/18 02:01 - Assessment/Plan Afib CAD CABG ischemia CM (EF 35-40%) Pt in SR Add amiodarone On eliqiuis Amiodarone Rx for 400mg QAM for one month only. Will fill the rest on fu Pt not interested in lifevest. Understands the risks. Now that he is in SR, EF likley better.
--- NOTE | 2018-06-12 13:43 | ECHO ---
TRANSESOPHAGEAL ECHOCARDIOGRAM: DATE OF PROCEDURE: 06/11/18 INDICATION: 63-year-old gentleman with paroxysmal atrial fibrillation. DESCRIPTION OF PROCEDURE: The patient was taken to the PACU. The patient was sedated by anesthesiology. A transesophageal probe was placed in the distal esophagus and stomach. Echocardiographic images were obtained. The transesophageal probe was removed. FINDINGS: 1. Moderate decrease in left ventricular systolic function. 2. Left ventricle is dilated. 3. Mild mitral regurgitation. 4. Mild tricuspid regurgitation. 5. Spontaneous contrast noted in the left atrium. 6. No formed thrombus in the left atrium or left atrial appendage. 7. Atherosclerotic debris in the descending aorta. IMPRESSION: No formed thrombus in the left atrium or left atrial appendage.
--- NOTE | 2018-06-12 13:46 | OP ---
CARDIOLOGY PROCEDURE NOTE: Date: 06/11/18 PROCEDURE: Electrical cardioversion. REASON FOR PROCEDURE: 63-year-old gentleman with paroxysmal atrial fibrillation. DESCRIPTION OF PROCEDURE: The patient was taken to the PACU. The patient was sedated by anesthesiology. The patient was shocked with 200 joules of synchronized electricity. The patient converted to normal sinus rhythm. IMPRESSION: Successful electrical cardioversion.
--- NOTE | 2018-06-12 14:36 | PDOC.CTH ---
Cardiology Progress Note - Subjective EP PROGRESS NOTE: 06/12/18 Seen and evaluated for atrial fibrillation and cardiomyopathy. Had successful Cv yesterday.No new cardiac concerns or complaints today - Objective Vital Signs Temp Pulse Resp BP Pulse Ox 06/12/18 11:31 98.2 F 65 18 126/69 93 L 06/12/18 07:35 93 L 06/12/18 07:27 98.2 F 67 18 125/73 93 L 06/12/18 06:39 75 16 99 06/12/18 06:37 75 16 99 06/12/18 02:52 97.8 F 65 20 135/73 92 L Admit Weight 317 lb Weight 316 lb 14.4 oz 06/11/18 06/12/18 06/13/18 06:59 06:59 06:59 Intake Total 1080 1680 Balance 1080 1680 - Physical Examination General/Neuro: alert & oriented x3, NAD Neck: carotid US brisk, no JVD present Lungs: CTA, unlabored respirations Heart: PMI normal, RRR Abdomen: NT/ND, soft - Telemetry Telemetry Rhythm: SR - Labs Result Diagrams: 06/12/18 06:06 06/12/18 06:06 Troponin/CKMB Troponin I Less than 0.010 ng/mL (< 0.028) 06/09/18 02:01 - Assessment/Plan 1. Atrial fibrillation -s/p CV, in SR - on amiodarone loading - shelter consideration for PVAI as outpatient but highly advise weight loss before ablation 2. CHADS-VASC: >/= 3 - on eliquis with plavix as well 4. Cardiomyopathy - EF 35-40% Borderline but not a candidate for ICD unless EF<35% - continue medical management. 5. Morbid obesity continue eliquis and amiodarone. OP follow up requested. Ok for DC
[2018-06-12 16:15] VITALS: BP 134/73
[2018-06-12] MEDS ORDERED: Apixaban 5 MG TAB PO SCH (21:00)
[2018-06-13] MEDS ORDERED: Amiodarone 200 MG TAB PO SCH (09:00)
--- NOTE | 2018-06-13 09:32 | DIS ---
DATE OF ADMISSION: 06/08/2018 DATE OF DISCHARGE: 06/12/2018 DISCHARGE DISPOSITION: Home. FOLLOWUP: 1. Follow up with primary care physician, Dr. Roblero in 1 week. 2. Follow up with Cardiology, Dr. Em and Electrophysiology, Dr. Kasper as scheduled. 3. Outpatient cardiac rehab was arranged. ALLERGIES: NO KNOWN DRUG ALLERGIES. DISCHARGE MEDICATIONS: 1. Amiodarone 400 mg daily for one month. 2. Eliquis 5 mg b.i.d. 3. All other home medications were left unchanged. BRIEF HOSPITAL COURSE: The patient is a 63-year-old male with congestive heart failure, COPD, and coronary artery disease, presented to the hospital with a mechanical fall and injury to the right arm. In the emergency room, his workup was consistent with atrial fibrillation with rapid ventricular response. He was started on Cardizem drip. He was seen and evaluated by Cardiology. Echocardiogram showed ejection fraction 35% to 40% with [id number] mitral regurgitation, [id number] tricuspid regurgitation. He was also evaluated by Electrophysiology per Cardiology recommendation. He underwent DILSHAD with cardioversion on the 11 June 2018. He has been started on amiodarone to maintain sinus rhythm. Anticoagulation has been started by Cardiology. He understands the risks associated with anticoagulation. He will also continue Plavix per Cardiology. I also confirmed this with Electrophysiology. He has been cleared by consultants for discharge. FINAL DIAGNOSES: 1. Right arm injury secondary to fall. The patient denies any loss of consciousness. 2. Acute on chronic systolic heart failure exacerbation secondary to atrial fibrillation with rapid ventricular response, status post DILSHAD/cardioversion. 3. Morbid obesity with BMI of 40.7. 4. Chronic kidney disease stage 3. 5. Coronary artery disease. 6. Hypokalemia. 7. Abnormal LFTs probably secondary to passive hepatic congestion. Plan of care was discussed with the patient and the family in detail; they stated understanding. Job ID: [id number]
== END 2018-06-12 16:37 | disposition home or self-care (01) | DRG 291 ==
LOC: ERS 18:42 → ERHOLD 20:19 → 2NO 06-09 12:59
PROVIDERS: ADMIT Emergency Medicine; ATTEND Emergency Medicine
PROC: 5A2204Z Restoration of Cardiac Rhythm, Single (ICD-10-PCS; principal; 2018-06-11)
DX: I13.0 Hypertensive heart and chronic kidney disease with heart failure and stage 1 through stage 4 chronic kidney disease, or unspecified chronic kidney disease (principal); I50.23 Acute on chronic systolic (congestive) heart failure; Z68.41 Body mass index [BMI] 40.0-44.9, adult; I48.91 Unspecified atrial fibrillation; J44.9 Chronic obstructive pulmonary disease, unspecified; Z95.1 Presence of aortocoronary bypass graft; N18.3 Chronic kidney disease, stage 3 (moderate); I25.10 Atherosclerotic heart disease of native coronary artery without angina pectoris; Z95.5 Presence of coronary angioplasty implant and graft; E78.5 Hyperlipidemia, unspecified; Z87.891 Personal history of nicotine dependence; Z79.899 Other long term (current) drug therapy; Z79.02 Long term (current) use of antithrombotics/antiplatelets; I08.1 Rheumatic disorders of both mitral and tricuspid valves; E66.01 Morbid (severe) obesity due to excess calories; E87.6 Hypokalemia; I25.5 Ischemic cardiomyopathy; S50.811A Abrasion of right forearm, initial encounter; W31.89XA Contact with other specified machinery, initial encounter
CPT/HCPCS: 36415; 71045; 80048; 80053; 83735; 83880; 84443; 84484; 85025; 92960; 93005; 93306; 93312; 93798; 94640; 94760; 96365; 96366; 96375; 96376; J1160; J1644; J1650; J1940; J2704; J3490; J7050; J7620; J7626

== ENCOUNTER 2018-09-23 16:51 | Outpatient (CLI) | payer OTHER, MEDICARE ==
--- NOTE | 2018-09-23 17:14 | RAD ---
EXAM: Chest Two Views 09/23/2018 5:11 PM HISTORY: Cough COMPARISON: Prior exam dated June 08, 2018 FINDINGS: Heart: There is moderate cardiomegaly with postsurgical change of a prior CABG. Pulmonary vessels: Normal. Costophrenic angles: Clear. Lungs: Chronic lung changes are stable. Pneumothorax: None. Osseous structures:Intact. Additional findings: None. IMPRESSION: Stable cardiomegaly and post-CABG change. No acute cardiopulmonary abnormality.
== END 2018-09-23 16:52 | disposition home or self-care (01) ==
LOC: SCSRAD 16:51
PROVIDERS: ATTEND Nurse Practitioner Family
DX: J40 Bronchitis, not specified as acute or chronic (principal); I51.7 Cardiomegaly; Z95.1 Presence of aortocoronary bypass graft
CPT/HCPCS: 71046

== ENCOUNTER 2018-09-29 14:41 | Outpatient (CLI) | payer MEDICARE, OTHER ==
--- NOTE | 2018-09-30 07:45 | MRI ---
MRI BRAIN AND INTERNAL AUDITORY CANALS WITHOUT CONTRAST: Ronni Robins in Billing services: This is a noncontrast exam Date: 09/29/2018 HISTORY: 63-year-old male with bilateral sensorineural hearing loss, asymmetrically worse in the left ear, and tinnitus TECHNIQUE: Multiple sequences obtained in axial, sagittal, and coronal planes; both whole brain images and thin slices through the IACs, without injection of gadolinium-based contrast agent. No IV contrast was given because of patient's low GFR of 14, creatinine of 4.3. FINDINGS: The ventricles are normal in size and configuration. There is no major intra-axial signal abnormality , restricted diffusion, abnormal intra-axial enhancement, mass, midline shift or any other mass effect, recent intra-axial hemorrhage, or extra-axial fluid collection. There are scattered several t iny focal T2 hyperintensities in the cerebral white matter consistent with mild chronic ischemic white matter changes due to microvascular atherosclerosis, not unusual for age. There is an air-fluid level in the left maxillary sinus resulting in approximately 50% opacification. There is a small right mastoid effusion. There is morphologic abnormality involving the cerebellopontine angles, seventh-8th nerve complexes, internal auditory canals, cochleae, vestibules, vestibular aqueducts, or semicircular canals. IMPRESSION: 1. No IV gadolinium contrast given due to low GFR, resulting in a limited evaluation. 2. Mild chronic ischemic white matter changes of the brain, not unusual for age. 3. No other major pathology identified. 4. Fluid in the left maxillary sinus. 5. Small right mastoid effusion.
== END 2018-09-29 14:42 | disposition home or self-care (01) ==
LOC: BICMRI 14:41
PROVIDERS: ATTEND Otolaryngology Plastic Surgery within the Head & Neck
DX: H90.3 Sensorineural hearing loss, bilateral (principal); H93.13 Tinnitus, bilateral; I67.82 Cerebral ischemia; H74.8X1 Other specified disorders of right middle ear and mastoid
CPT/HCPCS: 70553; 82565

== ENCOUNTER 2019-02-15 12:29 | Outpatient (CLI) | payer OTHER, MEDICARE ==
[2019-02-15 13:46] LABS: Hemoglobin 13.6 g/dL (14.0-18.0); Mean Corpuscular HGB CONC 33.1 g/dL (32.0-36.0); Mean Corpuscular Hemoglobin 29.6 pg (27.0-31.0); Mean Corpuscular Volume 89.5 fL (78.0-98.0); Mean Platelet Volume 8.9 fL (7.4-10.4); Platelet Count 141 thou/uL (130-400); RBC Distribution Width 13.8 % (11.5-14.5); White Blood Cell (WBC) Count 6.4 thou/uL (4.8-10.8)
[2019-02-15 13:53] LABS: INR-International Normal Ratio 1.3; PTT 39.3 SEC (22.9-36.1); Prothrombin Time 16.1 SEC (12.0-14.7)
[2019-02-15 14:16] LABS: Anion Gap 15 mmol/L (10-20); BUN (Urea Nitrogen) 16 mg/dL (8.4-25.7); Calc. Creatinine Clearance 0 mL/min (70-130); Calcium 9.9 mg/dL (7.8-10.44); Carbon Dioxide 27 mmol/L (23-31); Chloride 104 mmol/L (98-107); Estimated GFR-MDRD 65; Glucose 104 mg/dL (80-115); Potassium 3.7 mmol/L (3.5-5.1); Sodium 142 mmol/L (136-145)
--- NOTE | 2019-02-17 16:41 | EKG ---
Test Reason : Blood Pressure : / mmHG Vent. Rate : 060 BPM Atrial Rate : 060 BPM P-R Int : 222 ms QRS Dur : 102 ms QT Int : 456 ms P-R-T Axes : 126 076 258 degrees QTc Int : 456 ms Unusual P axis, possible ectopic atrial rhythm with undetermined rhythm irregularity Cannot rule out Anterior infarct , age undetermined Abnormal ECG When compared with ECG of 08-JUN-2018 18:52, (Unconfirmed) Ectopic atrial rhythm has replaced Atrial fibrillation Vent. rate has decreased BY 68 BPM Inverted T waves have replaced nonspecific T wave abnormality in Lateral leads Confirmed by DR. Ermelinda HOLLAND ([id number]) on 02/17/2019 4:40:55 PM Referred By: [facility] Confirmed By:DR. Ermelinda HOLLAND
== END 2019-02-15 12:30 | disposition home or self-care (01) ==
LOC: LABBT 12:29
PROVIDERS: ATTEND Internal Medicine Cardiovascular Disease
DX: Z01.818 Encounter for other preprocedural examination (principal); I48.91 Unspecified atrial fibrillation
CPT/HCPCS: 80048; 85027; 85610; 85730; 93005; 93010

== ENCOUNTER 2020-06-29 07:46 | Outpatient (CLI) | payer MEDICARE, OTHER ==
[2020-06-29 14:52] LABS: #Basophils 0.1 10x3/uL (0.0-0.2); #Eosinphils 0.2 10x3/uL (0.0-0.5); #Monocytes 0.9 10x3/uL (0.0-1.1); #Neutrophils 7.2 10x3/uL (1.5-8.4); %Basophils 0.5 % (0.0-2.0); %Eosinophils 1.5 % (0.0-6.0); %Lymphocytes 13.9 % (18.0-47.0); %Monocytes 9.2 % (0.0-10.0); %Neutrophils 73.5 % (40.0-75.0); Hemoglobin 11.5 g/dL (14.0-18.0); Mean Corpuscular HGB CONC 34.1 G/DL (32.0-36.0); Mean Corpuscular Hemoglobin 30.5 PG (27.0-33.0); Mean Corpuscular Volume 89.4 fl (80.0-100.0); Mean Platelet Volume 11.4 fl (7.4-10.4); Platelet Count 154 10x3/uL (130-400); RBC Distribution Width 15.4 % (11.5-14.5); Red Blood Cell (RBC) Count 3.77 10x6/uL (4.40-5.80); White Blood Cell (WBC) Count 9.8 10x3/uL (4.5-11.0)
[2020-06-29 15:09] LABS: ALT (SGPT) 40 U/L (8-55); AST (SGOT) 19 U/L (5-34); Albumin 4.1 g/dL (3.4-4.8); Alkaline Phosphatase 108 U/L (40-110); Anion Gap 13 mmol/L (10-20); BUN (Urea Nitrogen) 38 mg/dL (8.4-25.7); Bilirubin, Total 2.7 mg/dL (0.2-1.2); Calc. Creatinine Clearance 0 mL/min (70-130); Carbon Dioxide 28 mmol/L (23-31); Chloride 96 mmol/L (98-107); Globulin 2.3 g/dL (2.4-3.5); Glucose 253 mg/dL (80-115); Potassium 3.9 mmol/L (3.5-5.1); Protein, Total 6.4 g/dL (5.8-8.1); Sodium 133 mmol/L (136-145)
[2020-06-30 02:29] LABS: SARS-CoV-2 PCR by NAA Not Detected (NotDetected)
== END 2020-06-29 07:47 | disposition home or self-care (01) ==
LOC: LABBT 07:46
PROVIDERS: ATTEND Internal Medicine Cardiovascular Disease
DX: Z01.812 Encounter for preprocedural laboratory examination (principal); Z20.822 Contact with and (suspected) exposure to COVID-19
CPT/HCPCS: 80053; 85025; U0003; U0005; 87635

== ENCOUNTER 2020-07-04 05:33 | Day surgery (SDC) | payer MEDICARE, OTHER ==
[2020-07-03 10:35] VITALS: BMI 38.5
[2020-07-04 06:47] LABS: Anion Gap 15 mmol/L (10-20); BUN (Urea Nitrogen) 49 mg/dL (8.4-25.7); Calc. Creatinine Clearance 71 mL/min (70-130); Calcium 8.7 mg/dL (7.8-10.44); Carbon Dioxide 22 mmol/L (23-31); Chloride 102 mmol/L (98-107); Glucose 199 mg/dL (80-115); Potassium 4.5 mmol/L (3.5-5.1); Sodium 134 mmol/L (136-145)
[2020-07-04] MEDS ORDERED: Midazolam HCl 2 mg/2 ml Vial ONE (09:07)
[2020-07-04] MEDS ORDERED: Fentanyl 100 MCG/2 ML VIAL ONE ×2 (09:07→10:43)
--- NOTE | 2020-07-04 12:57 | EKG ---
Test Reason : PREOP Blood Pressure : / mmHG Vent. Rate : 077 BPM Atrial Rate : 075 BPM P-R Int : 000 ms QRS Dur : 106 ms QT Int : 424 ms P-R-T Axes : 000 065 -49 degrees QTc Int : 479 ms Atrial fibrillation Nonspecific ST and T wave abnormality , probably digitalis effect Prolonged QT Abnormal ECG No previous ECGs available Confirmed by DR. Ermelinda HOLLAND ([id number]) on 07/04/2020 12:56:44 PM Referred By: [facility] Confirmed By:DR. Ermelinda HOLLAND
[2020-07-04] MEDS ORDERED: Iopamidol 370 76% 100 ML VIAL ONE (13:13)
== END 2020-07-04 16:09 | disposition home or self-care (01) ==
LOC: CCL 05:33
PROVIDERS: ATTEND Internal Medicine Cardiovascular Disease
PROC: 4A023N7 Measurement of Cardiac Sampling and Pressure, Left Heart, Percutaneous Approach (ICD-10-PCS; principal; 2020-07-04)
PROC: B2111ZZ Fluoroscopy of Multiple Coronary Arteries using Low Osmolar Contrast (ICD-10-PCS; 2020-07-04)
DX: I25.118 Atherosclerotic heart disease of native coronary artery with other forms of angina pectoris (principal); I11.0 Hypertensive heart disease with heart failure; I50.22 Chronic systolic (congestive) heart failure; I48.0 Paroxysmal atrial fibrillation; E66.9 Obesity, unspecified; E78.00 Pure hypercholesterolemia, unspecified; I73.9 Peripheral vascular disease, unspecified; Z68.38 Body mass index [BMI] 38.0-38.9, adult; Z79.01 Long term (current) use of anticoagulants; Z79.899 Other long term (current) drug therapy; Z87.891 Personal history of nicotine dependence; Z95.1 Presence of aortocoronary bypass graft
CPT/HCPCS: 36415; 76942; 80048; 93005; 93010; 93459; 99152; 99153; J1644; J2250; J3010; Q9967

== ENCOUNTER 2020-07-23 17:30 | Inpatient (IN) | payer MEDICARE, OTHER ==
[2020-07-23] MEDS ORDERED: Acetaminophen 325 MG TAB PO PRN (20:08)
[2020-07-23] MEDS ORDERED: Acetaminophen 650 MG Suppository PR PRN (20:08)
[2020-07-23 20:20] VITALS: BMI 38.5
[2020-07-23 20:46] LABS: #Eosinphils 0.1 thou/uL (0.0-0.7); #Lymphocytes 1.2 thou/uL (1.20-3.40); #Monocytes 0.7 thou/uL (0.11-0.59); #Neutrophils 5.4 thou/uL (1.40-6.50); %Basophils 0.1 % (0.0-1.0); %Eosinophils 0.9 % (0.0-10.0); %Lymphocytes 15.6 % (21.0-51.0); %Neutrophils 73.4 % (42.0-75.0); Hemoglobin 9.5 g/dL (14.0-18.0); Mean Corpuscular Hemoglobin 30.6 pg (27.0-31.0); Mean Corpuscular Volume 87.4 fL (78.0-98.0); Mean Platelet Volume 7.5 fL (7.4-10.4); Platelet Count 274 thou/uL (130-400); Red Blood Cell (RBC) Count 3.09 mill/uL (4.70-6.10); White Blood Cell (WBC) Count 7.4 thou/uL (4.8-10.8)
[2020-07-23 21:02] LABS: Lactic Acid 0.8 mmol/L (0.5-2.2)
[2020-07-23 21:08] LABS: Anion Gap 17 mmol/L (10-20); BUN (Urea Nitrogen) 53 mg/dL (8.4-25.7); Calc. Creatinine Clearance 52 mL/min (70-130); Calcium 9.2 mg/dL (7.8-10.44); Carbon Dioxide 27 mmol/L (23-31); Chloride 96 mmol/L (98-107); Glucose 161 mg/dL (80-115); Magnesium 2.4 mg/dL (1.6-2.6); Potassium 3.4 mmol/L (3.5-5.1); Sodium 137 mmol/L (136-145)
[2020-07-23] MEDS ORDERED: Heparin 25,000 units/D5W 500 ML IVPB SCH ×2 (22:00→22:02)
[2020-07-23] MEDS ORDERED: Heparin 10,000 UNITS/ 10 ML VIAL SLOW IVP SCH ×2 (22:00→22:01)
[2020-07-23] MEDS ORDERED: Albuterol Sulfate 2.5 mg/3 ml Neb NEB PRN (22:10)
[2020-07-23] MEDS ORDERED: Carvedilol 6.25 MG TAB PO SCH (22:15)
[2020-07-23] MEDS ORDERED: Gabapentin 300 MG CAP PO SCH (22:15)
[2020-07-23 22:51] LABS: Hemoglobin 9.6 g/dL (14.0-18.0); Platelet Count 263 thou/uL (130-400)
[2020-07-23 22:59] LABS: INR-International Normal Ratio 1.7; Prothrombin Time 20.2 sec (12.0-14.7)
[2020-07-23 23:00] LABS: PTT 54.3 sec (22.9-36.1)
[2020-07-23] MEDS: NS 0.9% w/ 40 MEQ KCL 1,000 ML IV SCH (23:03)
[2020-07-24] MEDS ORDERED: traMADol HCl 50 MG TAB PO SCH (04:15)
[2020-07-24 05:32] LABS: #Eosinphils 0.1 thou/uL (0.0-0.7); #Lymphocytes 0.8 thou/uL (1.20-3.40); #Monocytes 0.7 thou/uL (0.11-0.59); #Neutrophils 5.7 thou/uL (1.40-6.50); %Basophils 0.1 % (0.0-1.0); %Eosinophils 0.9 % (0.0-10.0); %Lymphocytes 10.6 % (21.0-51.0); %Monocytes 9.7 % (0.0-10.0); %Neutrophils 78.7 % (42.0-75.0); Hemoglobin 9.2 g/dL (14.0-18.0); Mean Corpuscular Hemoglobin 28.8 pg (27.0-31.0); Mean Corpuscular Volume 87.3 fL (78.0-98.0); Mean Platelet Volume 7.4 fL (7.4-10.4); Platelet Count 256 thou/uL (130-400); RBC Distribution Width 14.1 % (11.5-14.5); Red Blood Cell (RBC) Count 3.18 mill/uL (4.70-6.10); White Blood Cell (WBC) Count 7.2 thou/uL (4.8-10.8)
[2020-07-24 05:49] LABS: Anion Gap 16 mmol/L (10-20); BUN (Urea Nitrogen) 49 mg/dL (8.4-25.7); Calc. Creatinine Clearance 59 mL/min (70-130); Calcium 9.1 mg/dL (7.8-10.44); Carbon Dioxide 27 mmol/L (23-31); Chloride 98 mmol/L (98-107); Glucose 182 mg/dL (80-115); Potassium 3.6 mmol/L (3.5-5.1); Sodium 137 mmol/L (136-145)
[2020-07-24] MEDS: Carvedilol 6.25 MG TAB PO SCH ×2 (06:32→20:53)
[2020-07-24] MEDS ORDERED: Morphine 2 MG/ML VIAL SLOW IVP PRN (07:46)
[2020-07-24] MEDS: Arformoterol 15 MCG/2 ML NEB NEB SCH ×2 (08:43→18:44)
[2020-07-24] MEDS: Budesonide 0.5 MG/2 ML NEB NEB SCH ×2 (08:46→18:43)
[2020-07-24] MEDS ORDERED: Rosuvastatin 20 MG TAB PO SCH (09:00)
[2020-07-24] MEDS: Mometasone 200 MCG/Formoterol 5 MCG 120 PUFF INHALER INH SCH ×2 (09:17→18:44)
[2020-07-24] MEDS: Gabapentin 300 MG CAP PO SCH ×2 (09:24→20:54)
[2020-07-24] MEDS: Azithromycin 250 MG TAB PO SCH (09:24)
[2020-07-24] MEDS: Amiodarone 200 MG TAB PO SCH (09:25)
[2020-07-24] MEDS ORDERED: Morphine 2 MG/ML VIAL SLOW IVP SCH (10:15)
[2020-07-24] MEDS: NS 0.9% w/ 40 MEQ KCL 1,000 ML IV SCH ×2 (12:58→23:50)
[2020-07-24 13:24] LABS: ALT (SGPT) 32 U/L (8-55); AST (SGOT) 47 U/L (5-34); Albumin 3.5 g/dL (3.4-4.8); Alkaline Phosphatase 258 U/L (40-110); Bilirubin, Total 2.1 mg/dL (0.2-1.2)
[2020-07-24 13:25] LABS: CRP (Inflammatory) 15.67 mg/dL (= or < 0.5); Magnesium 2.5 mg/dL (1.6-2.6); Uric Acid 13.4 mg/dL (3.5-7.2)
[2020-07-24] MEDS: Morphine 2 MG/ML VIAL SLOW IVP PRN ×2 (14:35→20:49)
[2020-07-25] MEDS: Morphine 2 MG/ML VIAL SLOW IVP PRN ×4 (05:00→20:56)
[2020-07-25 06:39] LABS: #Lymphocytes 0.8 thou/uL (1.20-3.40); #Neutrophils 5.9 thou/uL (1.40-6.50); %Basophils 0.2 % (0.0-1.0); %Eosinophils 0.5 % (0.0-10.0); %Lymphocytes 10.3 % (21.0-51.0); %Monocytes 13.2 % (0.0-10.0); %Neutrophils 75.9 % (42.0-75.0); Hemoglobin 8.9 g/dL (14.0-18.0); Mean Corpuscular HGB CONC 34.5 g/dL (32.0-36.0); Mean Corpuscular Hemoglobin 30.7 pg (27.0-31.0); Mean Platelet Volume 7.4 fL (7.4-10.4); Platelet Count 253 thou/uL (130-400); RBC Distribution Width 14.3 % (11.5-14.5); Red Blood Cell (RBC) Count 2.89 mill/uL (4.70-6.10); White Blood Cell (WBC) Count 7.8 thou/uL (4.8-10.8)
[2020-07-25 07:02] LABS: Anion Gap 14 mmol/L (10-20); BUN (Urea Nitrogen) 40 mg/dL (8.4-25.7); Calc. Creatinine Clearance 73 mL/min (70-130); Calcium 8.9 mg/dL (7.8-10.44); Carbon Dioxide 24 mmol/L (23-31); Chloride 101 mmol/L (98-107); Glucose 182 mg/dL (80-115); Potassium 4.1 mmol/L (3.5-5.1); Sodium 135 mmol/L (136-145)
[2020-07-25 07:05] LABS: ALT (SGPT) 27 U/L (8-55); AST (SGOT) 30 U/L (5-34); Albumin 3.2 g/dL (3.4-4.8); Alkaline Phosphatase 259 U/L (40-110); Bilirubin, Direct 1.1 mg/dL (0.1-0.3); Bilirubin, Total 2.4 mg/dL (0.2-1.2); Protein, Total 6.6 g/dL (5.8-8.1)
[2020-07-25] MEDS: Arformoterol 15 MCG/2 ML NEB NEB SCH ×2 (07:49→18:17)
[2020-07-25] MEDS: Mometasone 200 MCG/Formoterol 5 MCG 120 PUFF INHALER INH SCH ×2 (07:50→18:17)
[2020-07-25] MEDS: Budesonide 0.5 MG/2 ML NEB NEB SCH ×2 (07:50→18:16)
[2020-07-25] MEDS: NS 0.9% w/ 40 MEQ KCL 1,000 ML IV SCH (08:58)
[2020-07-25] MEDS: Gabapentin 300 MG CAP PO SCH ×2 (09:02→20:57)
[2020-07-25] MEDS: Amiodarone 200 MG TAB PO SCH (09:02)
[2020-07-25] MEDS: Carvedilol 6.25 MG TAB PO SCH ×2 (09:02→20:57)
[2020-07-25] MEDS ORDERED: Senokot S 8.6-50 MG TAB PO PRN (12:44)
[2020-07-25] MEDS ORDERED: Polyethylene Glycol 3350 17 GM Packet PO PRN (12:44)
[2020-07-25] MEDS: HYDROcodone/Acetaminophen 10/325 mg Tablet PO PRN ×3 (13:11→23:55)
[2020-07-25 22:17] LABS: Platelet Count 259 thou/uL (130-400)
[2020-07-26] MEDS: NS 0.9% w/ 40 MEQ KCL 1,000 ML IV SCH ×2 (00:02→15:14)
[2020-07-26] MEDS: Morphine 2 MG/ML VIAL SLOW IVP PRN ×4 (02:53→20:42)
[2020-07-26] MEDS: HYDROcodone/Acetaminophen 10/325 mg Tablet PO PRN ×3 (06:00→15:14)
[2020-07-26 07:20] LABS: #Eosinphils 0.1 thou/uL (0.0-0.7); #Lymphocytes 0.9 thou/uL (1.20-3.40); #Monocytes 1.1 thou/uL (0.11-0.59); #Neutrophils 6.4 thou/uL (1.40-6.50); %Basophils 0.4 % (0.0-1.0); %Eosinophils 0.6 % (0.0-10.0); %Lymphocytes 10.7 % (21.0-51.0); %Monocytes 12.4 % (0.0-10.0); %Neutrophils 75.9 % (42.0-75.0); Hemoglobin 8.5 g/dL (14.0-18.0); Mean Corpuscular HGB CONC 33.4 g/dL (32.0-36.0); Mean Corpuscular Hemoglobin 29.9 pg (27.0-31.0); Mean Corpuscular Volume 89.6 fL (78.0-98.0); Mean Platelet Volume 7.5 fL (7.4-10.4); Platelet Count 241 thou/uL (130-400); RBC Distribution Width 14.4 % (11.5-14.5); Red Blood Cell (RBC) Count 2.85 mill/uL (4.70-6.10); White Blood Cell (WBC) Count 8.5 thou/uL (4.8-10.8)
[2020-07-26] MEDS: Mometasone 200 MCG/Formoterol 5 MCG 120 PUFF INHALER INH SCH ×2 (07:20→19:07)
[2020-07-26] MEDS: Arformoterol 15 MCG/2 ML NEB NEB SCH ×2 (07:20→19:07)
[2020-07-26] MEDS: Budesonide 0.5 MG/2 ML NEB NEB SCH ×2 (07:20→19:06)
[2020-07-26 07:34] LABS: Anion Gap 15 mmol/L (10-20); BUN (Urea Nitrogen) 48 mg/dL (8.4-25.7); Calc. Creatinine Clearance 62 mL/min (70-130); Calcium 8.7 mg/dL (7.8-10.44); Carbon Dioxide 23 mmol/L (23-31); Chloride 99 mmol/L (98-107); Glucose 159 mg/dL (80-115); Potassium 4.6 mmol/L (3.5-5.1); Sodium 132 mmol/L (136-145)
[2020-07-26] MEDS: Carvedilol 6.25 MG TAB PO SCH ×2 (07:42→20:40)
[2020-07-26] MEDS ORDERED: predniSONE 20 MG TAB PO SCH (09:00)
[2020-07-26] MEDS: Amiodarone 200 MG TAB PO SCH (09:29)
[2020-07-26] MEDS: Gabapentin 300 MG CAP PO SCH ×2 (09:29→20:41)
[2020-07-26] MEDS: Azithromycin 250 MG TAB PO SCH (09:29)
[2020-07-26] MEDS ORDERED: Sodium Chloride 0.9% 500 ML IV SCH (09:30)
[2020-07-26] MEDS ORDERED: Communication Order-Pharmacy FS SCH (09:30)
[2020-07-26] MEDS: predniSONE 20 MG TAB PO SCH ×2 (10:30→12:54)
[2020-07-26 13:06] LABS: Anion Gap 14 mmol/L (10-20); BUN (Urea Nitrogen) 48 mg/dL (8.4-25.7); Calc. Creatinine Clearance 62 mL/min (70-130); Calcium 8.8 mg/dL (7.8-10.44); Carbon Dioxide 24 mmol/L (23-31); Chloride 100 mmol/L (98-107); Glucose 155 mg/dL (80-115); Potassium 4.7 mmol/L (3.5-5.1); Sodium 133 mmol/L (136-145)
[2020-07-26] MEDS ORDERED: Gabapentin 300 MG CAP PO SCH (14:00)
[2020-07-26] MEDS ORDERED: Bisacodyl 10 MG SUPP PR PRN (14:35)
[2020-07-26] MEDS ORDERED: Senokot S 8.6-50 MG TAB PO SCH (14:45)
[2020-07-26 17:23] LABS: HBSAg Index 0.25 S/CO (0-0.99); Hep B Surf Ag Non-Reactive S/CO (NonReactive)
[2020-07-26 17:24] LABS: Hep C IgG Ab Non-Reactive (NonReactive); Hep C Index 0.08 S/CO (0-0.79); Vitamin D, 25 Hydroxy 7.7 ng/ml (> 30.0)
[2020-07-26 17:25] LABS: Hep A IgM AB Non-Reactive (NonReactive); Hep A IgM S/CO 0.12 S/CO (0-0.79)
[2020-07-26 17:26] LABS: HBCM Index 0.08 S/CO (0-0.79); Hepatitis B Core IgM Abs Non-Reactive (NonReactive)
[2020-07-26] MEDS: Sodium Chloride 0.9% 1,000 ML IV SCH (20:40)
[2020-07-26] MEDS: Enoxaparin Sodium 120 MG/0.8 ML SYRINGE SC SCH (20:41)
[2020-07-26] MEDS: Senokot S 8.6-50 MG TAB PO SCH (20:42)
[2020-07-26] MEDS ORDERED: Indomethacin 25 mg Capsule PO SCH (21:00)
[2020-07-26 23:54] LABS: Creatinine, Urine 96.66 mg/dL (63-166)
[2020-07-27 06:14] LABS: #Lymphocytes 0.9 thou/uL (1.20-3.40); #Monocytes 0.8 thou/uL (0.11-0.59); #Neutrophils 7.7 thou/uL (1.40-6.50); %Basophils 0.3 % (0.0-1.0); %Eosinophils 0.1 % (0.0-10.0); %Lymphocytes 9.4 % (21.0-51.0); %Monocytes 8.1 % (0.0-10.0); Hemoglobin 8.3 g/dL (14.0-18.0); Mean Corpuscular Hemoglobin 28.3 pg (27.0-31.0); Mean Corpuscular Volume 88.2 fL (78.0-98.0); Mean Platelet Volume 7.4 fL (7.4-10.4); Platelet Count 264 thou/uL (130-400); RBC Distribution Width 14.4 % (11.5-14.5); Red Blood Cell (RBC) Count 2.94 mill/uL (4.70-6.10); White Blood Cell (WBC) Count 9.4 thou/uL (4.8-10.8)
[2020-07-27 06:34] LABS: Anion Gap 15 mmol/L (10-20); BUN (Urea Nitrogen) 48 mg/dL (8.4-25.7); Calc. Creatinine Clearance 69 mL/min (70-130); Calcium 8.9 mg/dL (7.8-10.44); Carbon Dioxide 21 mmol/L (23-31); Chloride 100 mmol/L (98-107); Glucose 165 mg/dL (80-115); Potassium 4.9 mmol/L (3.5-5.1); Sodium 131 mmol/L (136-145)
[2020-07-27] MEDS: Arformoterol 15 MCG/2 ML NEB NEB SCH ×2 (07:45→18:36)
[2020-07-27] MEDS: Budesonide 0.5 MG/2 ML NEB NEB SCH ×2 (07:45→18:36)
[2020-07-27] MEDS: Mometasone 200 MCG/Formoterol 5 MCG 120 PUFF INHALER INH SCH ×2 (07:46→18:36)
[2020-07-27] MEDS: HYDROcodone/Acetaminophen 10/325 mg Tablet PO PRN (08:40)
[2020-07-27] MEDS: Senokot S 8.6-50 MG TAB PO SCH ×2 (08:40→20:05)
[2020-07-27] MEDS: Gabapentin 300 MG CAP PO SCH ×2 (08:42→20:04)
[2020-07-27] MEDS: predniSONE 20 MG TAB PO SCH (08:42)
[2020-07-27] MEDS: Amiodarone 200 MG TAB PO SCH (08:44)
[2020-07-27] MEDS: Carvedilol 6.25 MG TAB PO SCH ×2 (08:45→20:03)
[2020-07-27] MEDS: Polyethylene Glycol 3350 17 GM Packet PO SCH (08:46)
[2020-07-27] MEDS: Enoxaparin Sodium 120 MG/0.8 ML SYRINGE SC SCH ×2 (09:07→20:04)
[2020-07-27] MEDS ORDERED: Colchicine 0.6 MG TAB PO SCH (11:30)
[2020-07-27] MEDS: Sodium Chloride 0.9% 1,000 ML IV SCH (13:53)
[2020-07-27] MEDS ORDERED: methylPREDNISolone Sod Succ/PF 125 MG/2 ML VIAL IVP SCH (16:30)
[2020-07-27] MEDS ORDERED: Furosemide 40 MG/4 ML VIAL SLOW IVP SCH (17:15)
[2020-07-27] MEDS: Colchicine 0.6 MG TAB PO SCH (20:04)
[2020-07-27 21:48] LABS: Platelet Count 254 thou/uL (130-400)
[2020-07-28] MEDS: Arformoterol 15 MCG/2 ML NEB NEB SCH ×2 (06:30→18:25)
[2020-07-28] MEDS: Budesonide 0.5 MG/2 ML NEB NEB SCH ×2 (06:33→18:25)
[2020-07-28 07:04] LABS: #Monocytes 0.6 thou/uL (0.11-0.59); #Neutrophils 6.3 thou/uL (1.40-6.50); %Basophils 0.4 % (0.0-1.0); %Eosinophils 0.3 % (0.0-10.0); %Lymphocytes 12.9 % (21.0-51.0); %Monocytes 7.6 % (0.0-10.0); %Neutrophils 78.9 % (42.0-75.0); Hemoglobin 8.6 g/dL (14.0-18.0); Mean Corpuscular HGB CONC 33.9 g/dL (32.0-36.0); Mean Corpuscular Hemoglobin 29.7 pg (27.0-31.0); Mean Corpuscular Volume 87.7 fL (78.0-98.0); Mean Platelet Volume 7.5 fL (7.4-10.4); Platelet Count 276 thou/uL (130-400); RBC Distribution Width 14.3 % (11.5-14.5); Red Blood Cell (RBC) Count 2.89 mill/uL (4.70-6.10)
[2020-07-28] MEDS: Mometasone 200 MCG/Formoterol 5 MCG 120 PUFF INHALER INH SCH ×2 (07:04→18:26)
[2020-07-28 07:25] LABS: Anion Gap 16 mmol/L (10-20); BUN (Urea Nitrogen) 52 mg/dL (8.4-25.7); Calc. Creatinine Clearance 72 mL/min (70-130); Calcium 8.9 mg/dL (7.8-10.44); Carbon Dioxide 20 mmol/L (23-31); Chloride 98 mmol/L (98-107); Glucose 202 mg/dL (80-115); Potassium 4.1 mmol/L (3.5-5.1); Sodium 130 mmol/L (136-145)
[2020-07-28] MEDS: Senokot S 8.6-50 MG TAB PO SCH ×2 (08:02→20:41)
[2020-07-28] MEDS: Azithromycin 250 MG TAB PO SCH (08:02)
[2020-07-28] MEDS: Enoxaparin Sodium 120 MG/0.8 ML SYRINGE SC SCH ×2 (08:02→20:41)
[2020-07-28] MEDS: Colchicine 0.6 MG TAB PO SCH ×2 (08:03→20:42)
[2020-07-28] MEDS: Amiodarone 200 MG TAB PO SCH (08:03)
[2020-07-28] MEDS: Cholecalciferol 1,000 UNITS (25 MCG) TAB PO SCH (08:03)
[2020-07-28] MEDS: Gabapentin 300 MG CAP PO SCH ×2 (08:03→20:39)
[2020-07-28] MEDS: Carvedilol 6.25 MG TAB PO SCH ×2 (08:04→20:39)
[2020-07-28] MEDS: Furosemide 40 MG/4 ML VIAL SLOW IVP SCH (08:04)
[2020-07-28] MEDS: predniSONE 20 MG TAB PO SCH ×2 (08:04→23:05)
[2020-07-28] MEDS: Polyethylene Glycol 3350 17 GM Packet PO SCH (08:05)
[2020-07-28] MEDS: HYDROcodone/Acetaminophen 10/325 mg Tablet PO PRN ×2 (12:41→17:23)
[2020-07-28] MEDS: Morphine 2 MG/ML VIAL SLOW IVP PRN ×2 (14:52→23:05)
[2020-07-29] MEDS: predniSONE 20 MG TAB PO SCH (05:16)
[2020-07-29] MEDS: HYDROcodone/Acetaminophen 10/325 mg Tablet PO PRN (05:16)
[2020-07-29 06:48] LABS: #Eosinphils 0.1 thou/uL (0.0-0.7); #Lymphocytes 0.9 thou/uL (1.20-3.40); #Monocytes 0.5 thou/uL (0.11-0.59); #Neutrophils 6.3 thou/uL (1.40-6.50); %Basophils 0.1 % (0.0-1.0); %Eosinophils 0.8 % (0.0-10.0); Hemoglobin 8.6 g/dL (14.0-18.0); Mean Corpuscular HGB CONC 33.1 g/dL (32.0-36.0); Mean Corpuscular Hemoglobin 28.9 pg (27.0-31.0); Mean Corpuscular Volume 87.5 fL (78.0-98.0); Mean Platelet Volume 7.7 fL (7.4-10.4); Platelet Count 283 thou/uL (130-400); RBC Distribution Width 14.3 % (11.5-14.5); Red Blood Cell (RBC) Count 2.97 mill/uL (4.70-6.10); White Blood Cell (WBC) Count 7.7 thou/uL (4.8-10.8)
[2020-07-29 07:12] LABS: Anion Gap 16 mmol/L (10-20); BUN (Urea Nitrogen) 53 mg/dL (8.4-25.7); Calc. Creatinine Clearance 82 mL/min (70-130); Calcium 8.6 mg/dL (7.8-10.44); Carbon Dioxide 22 mmol/L (23-31); Chloride 97 mmol/L (98-107); Glucose 232 mg/dL (80-115); Potassium 4.4 mmol/L (3.5-5.1); Sodium 131 mmol/L (136-145)
[2020-07-29] MEDS: Arformoterol 15 MCG/2 ML NEB NEB SCH (07:23)
[2020-07-29] MEDS: Budesonide 0.5 MG/2 ML NEB NEB SCH (07:23)
[2020-07-29] MEDS: Mometasone 200 MCG/Formoterol 5 MCG 120 PUFF INHALER INH SCH (07:24)
[2020-07-29] MEDS: Gabapentin 300 MG CAP PO SCH (08:16)
[2020-07-29] MEDS: Polyethylene Glycol 3350 17 GM Packet PO SCH (08:19)
[2020-07-29] MEDS: Enoxaparin Sodium 120 MG/0.8 ML SYRINGE SC SCH (08:19)
[2020-07-29] MEDS: Carvedilol 6.25 MG TAB PO SCH (08:20)
[2020-07-29] MEDS: Cholecalciferol 1,000 UNITS (25 MCG) TAB PO SCH (08:20)
[2020-07-29] MEDS: Colchicine 0.6 MG TAB PO SCH (08:20)
[2020-07-29] MEDS: Amiodarone 200 MG TAB PO SCH (08:20)
[2020-07-29] MEDS: Furosemide 40 MG/4 ML VIAL SLOW IVP SCH (08:20)
[2020-07-29] MEDS: Senokot S 8.6-50 MG TAB PO SCH (08:21)
[2020-07-29 13:00] VITALS: BP 134/77; TEMP 97.8
[2020-07-29] MEDS ORDERED: Apixaban 5 MG TAB PO SCH (21:00)
[2020-07-31 18:20] LABS: ANA Symphony (Qualitative) Negative (Negative); ANA Symphony (Quantitative) 0.6 Ratio (< 0.7 Negative)
[2020-07-31 18:22] LABS: EliA Vaculitis New Method **** NEW METHOD ****; Proteinase 3 (PR3) Ab Less than 0.7 U/mL (<7 Negative)
[2020-07-31 18:25] LABS: CCP IgG Antibody 0.9 EliAU/mL (<7 Negative); EliA RAS New Method **** NEW METHOD ****; Rheumatoid Factor IgA Antibody 2.3 IU/mL (<14 Negative); Rheumatoid Factor IgM Antibody 0.6 IU/mL (<3.5 Negative)
[2020-08-01 15:14] LABS: Cytoplasmic (C-ANCA) <1:20 titer (Neg:<1:20); Perinuclear (P-ANCA) <1:20 titer (Neg:<1:20)
== END 2020-07-29 13:20 | disposition home or self-care (01) | DRG 300 ==
LOC: T4-B 18:11 → OBSVTOIN 20:08
PROVIDERS: ADMIT Internal Medicine; ATTEND Internal Medicine
DX: I73.9 Peripheral vascular disease, unspecified (principal); I13.0 Hypertensive heart and chronic kidney disease with heart failure and stage 1 through stage 4 chronic kidney disease, or unspecified chronic kidney disease; N17.9 Acute kidney failure, unspecified; I48.20 Chronic atrial fibrillation, unspecified; N25.81 Secondary hyperparathyroidism of renal origin; I50.22 Chronic systolic (congestive) heart failure; M10.022 Idiopathic gout, left elbow; M13.0 Polyarthritis, unspecified; I25.10 Atherosclerotic heart disease of native coronary artery without angina pectoris; E87.6 Hypokalemia; N18.30 Chronic kidney disease, stage 3 unspecified; E78.00 Pure hypercholesterolemia, unspecified; E80.6 Other disorders of bilirubin metabolism; K76.9 Liver disease, unspecified; D64.9 Anemia, unspecified; G62.9 Polyneuropathy, unspecified; I25.5 Ischemic cardiomyopathy; I48.0 Paroxysmal atrial fibrillation; E78.5 Hyperlipidemia, unspecified; M10.462 Other secondary gout, left knee; J44.9 Chronic obstructive pulmonary disease, unspecified; Z79.899 Other long term (current) drug therapy; Z95.1 Presence of aortocoronary bypass graft; Z79.2 Long term (current) use of antibiotics; Z79.51 Long term (current) use of inhaled steroids; Z79.01 Long term (current) use of anticoagulants; Z95.5 Presence of coronary angioplasty implant and graft; Z87.891 Personal history of nicotine dependence
CPT/HCPCS: 36415; 71045; 76705; 76770; 80048; 80074; 80076; 82306; 82570; 83516; 83520; 83605; 83690; 83735; 83880; 83970; 84156; 84443; 84550; 85025; 85379; 85610; 85652; 85730; 86038; 86140; 86200; 86225; 86256; 93005; 93010; 93306; 93925; 94640; J1644; J1650; J1940; J2270; J2930; J3480; J7512; J7620; J7626

== ENCOUNTER 2022-03-07 10:56 | Outpatient (CLI) | payer MEDICARE, OTHER ==
[2022-03-07 11:57] LABS: #Eosinphils 0.1 10x3/uL (0.0-0.5); #Monocytes 0.4 10x3/uL (0.0-1.1); #Neutrophils 2.1 10x3/uL (1.5-8.4); %Basophils 0.8 % (0.0-2.0); %Eosinophils 3.1 % (0.0-6.0); %Lymphocytes 24.6 % (18.0-47.0); %Monocytes 11.2 % (0.0-10.0); %Neutrophils 59.7 % (40.0-75.0); Hemoglobin 11.6 g/dL (13.5-17.5); Mean Corpuscular HGB CONC 32.9 g/dL (32.0-36.0); Mean Corpuscular Hemoglobin 30.1 pg (27.0-33.0); Mean Corpuscular Volume 91.7 fl (81.2-95.1); Mean Platelet Volume 10.6 fl (7.4-10.4); Platelet Count 129 10x3/uL (150-450); Red Blood Cell (RBC) Count 3.85 10x6/uL (4.32-5.72); White Blood Cell (WBC) Count 3.6 10x3/uL (3.5-10.5)
[2022-03-07 12:11] LABS: Anion Gap 13 mmol/L (10-20); BUN (Urea Nitrogen) 15 mg/dL (8.4-25.7); Calc. Creatinine Clearance 0 mL/min (70-130); Carbon Dioxide 25 mmol/L (23-31); Chloride 108 mmol/L (98-107); Estimated GFR 68; Glucose 133 mg/dL (80-115); Potassium 4.5 mmol/L (3.5-5.1); Sodium 141 mmol/L (136-145)
[2022-03-07 14:02] LABS: Hemoglobin A1c 5.4 % (4.0-6.0)
== END 2022-03-07 10:57 | disposition home or self-care (01) ==
LOC: LABBT 10:56
PROVIDERS: ATTEND Specialist
DX: Z01.812 Encounter for preprocedural laboratory examination (principal); Z20.822 Contact with and (suspected) exposure to COVID-19; Z48.812 Encounter for surgical aftercare following surgery on the circulatory system; Z95.2 Presence of prosthetic heart valve
CPT/HCPCS: 80048; 82378; 82668; 82728; 83036; 83540; 83550; 85025; 87811

== ENCOUNTER 2022-03-12 05:35 | Inpatient (IN) | payer MEDICARE, OTHER ==
[2022-03-12] MEDS ORDERED: Acetaminophen 500 MG TAB ONE (06:19)
[2022-03-12] MEDS ORDERED: Ketorolac Tromethamine 30 MG/ML VIAL ONE (06:19)
[2022-03-12] MEDS ORDERED: cefOXitin 2 GM VIAL ONE ×2 (06:19→09:05)
[2022-03-12] MEDS ORDERED: Sodium Chloride 0.9% 100 ML ONE (06:19)
[2022-03-12] MEDS ORDERED: Lidocaine 1% MPF 2 ML VIAL ONE (06:35)
[2022-03-12] MEDS ORDERED: Lidocaine 1% (PF) 30 ML VIAL ONE (06:51)
[2022-03-12] MEDS ORDERED: EPINEPHrine 1 MG/ML AMP ONE (06:51)
[2022-03-12] MEDS ORDERED: Midazolam HCl 2 mg/2 ml Vial ONE (07:05)
[2022-03-12] MEDS ORDERED: fentaNYL Citrate/PF 100 MCG/2 ML SYRINGE ONE (07:05)
[2022-03-12] MEDS ORDERED: SUGAMMADEX SODIUM 200 MG/2 ML VIAL ONE ×2 (07:06→09:53)
[2022-03-12] MEDS ORDERED: Rocuronium Bromide 10 MG/ML (10ML VIAL) ONE (07:29)
[2022-03-12] MEDS ORDERED: PHENYLEPHRINE-NS 100 MCG/ML 10 ML SYRINGE ONE (07:29)
[2022-03-12] MEDS ORDERED: Ondansetron PF 4 MG/2 ML Vial ONE (07:29)
[2022-03-12] MEDS ORDERED: PROPOFOL 200 MG/20 ML VIAL ONE (07:29)
[2022-03-12] MEDS ORDERED: Bupivacaine HCl 0.5%/Epinephrine 1:200,000/PF 30 ml Vial ONE (07:29)
[2022-03-12] MEDS ORDERED: Promethazine HCl 25 MG/ML VIAL IM PRN ×3 (08:22→10:55)
[2022-03-12] MEDS ORDERED: Ondansetron HCl/PF 4 MG/2 ML Vial IVP PRN ×2 (08:22→10:18)
[2022-03-12] MEDS ORDERED: Promethazine HCl 25 MG/ML VIAL IVPB PRN ×2 (08:22→10:18)
[2022-03-12] MEDS ORDERED: Albumin 5% 500 ML ONE (09:23)
[2022-03-12] MEDS ORDERED: Ondansetron PF 4 MG/2 ML Vial IVP PRN (10:55)
[2022-03-12] MEDS ORDERED: Morphine 4 MG/ML VIAL SLOW IVP PRN (10:55)
[2022-03-12] MEDS ORDERED: Albuterol 200 PUFF (6.7GM INHALER) INH PRN (10:55)
[2022-03-12] MEDS ORDERED: hydrALAZINE 20 MG/ML VIAL SLOW IVP PRN (10:55)
[2022-03-12] MEDS ORDERED: Nitroglycerin 0.4 MG TAB (25 Tab Bottle) SL PRN (10:55)
[2022-03-12] MEDS ORDERED: Morphine 2 MG/ML VIAL SLOW IVP PRN (10:55)
[2022-03-12] MEDS ORDERED: Albuterol Sulfate 2.5 mg/3 ml Neb NEB PRN (12:23)
[2022-03-12] MEDS: Ketorolac Tromethamine 30 MG/ML VIAL IVP SCH ×3 (13:20→23:20)
[2022-03-12 13:58] VITALS: BMI 35.9
[2022-03-12] MEDS ORDERED: FLU VACC QS2022-23(65YR UP)/PF 240 MCG/0.7 ML SYRINGE IM ONE (14:45)
[2022-03-12] MEDS: Budesonide 0.5 MG/2 ML NEB NEB SCH (19:21)
[2022-03-12] MEDS: Arformoterol 15 MCG/2 ML NEB NEB SCH (19:21)
[2022-03-12] MEDS: Carvedilol 6.25 MG TAB PO SCH (20:45)
[2022-03-12] MEDS: Colchicine 0.6 MG TAB PO SCH (20:46)
[2022-03-12] MEDS: Famotidine 20 MG TAB PO SCH (20:47)
[2022-03-12] MEDS: Gabapentin 300 MG CAP PO SCH (20:47)
[2022-03-12] MEDS: Potassium Chloride 8 MEQ TAB PO SCH (20:47)
[2022-03-12] MEDS: Ezetimibe 10 MG TAB PO SCH (20:47)
[2022-03-12] MEDS: Sacubitril 49 MG/Valsartan 51 MG TABLET PO SCH (20:48)
[2022-03-12] MEDS: Rosuvastatin 20 MG TAB PO SCH (20:48)
[2022-03-12] MEDS: Famotidine/PF 20 mg/2ml Vial SLOW IVP SCH (20:49)
[2022-03-12] MEDS: Enoxaparin Sodium 40 MG/0.4 ML SYRINGE SC SCH (20:54)
[2022-03-12] MEDS ORDERED: Sacubitril 49 MG/Valsartan 51 MG TABLET PO SCH (21:00)
[2022-03-12] MEDS ORDERED: FORMOTEROL FUMARATE 20 MCG/2 ML IH SCH (21:00)
[2022-03-12] MEDS ORDERED: Non-Formulary Item 1 EACH (Colchicine [Colchicine] 0.6 MG Capsule) PO SCH (21:00)
[2022-03-12] MEDS ORDERED: Non-Formulary Item 1 EACH (Ranolazine [Ranolazine Er] 1,000 MG Tab.Er.12h) PO SCH (21:00)
[2022-03-12] MEDS ORDERED: Non-Formulary Item 1 EACH (Carvedilol [Carvedilol] 12.5 MG Tablet) PO SCH (21:00)
[2022-03-12] MEDS ORDERED: Non-Formulary Item 1 EACH (Rosuvastatin Calcium [Crestor] 40 MG Tablet) PO SCH (21:00)
[2022-03-13 06:06] LABS: Anion Gap 12 mmol/L (10-20); BUN (Urea Nitrogen) 13 mg/dL (8.4-25.7); Calc. Creatinine Clearance 93 mL/min (70-130); Calcium 8.8 mg/dL (7.8-10.44); Carbon Dioxide 21 mmol/L (23-31); Chloride 110 mmol/L (98-107); Estimated GFR 60; Glucose 94 mg/dL (80-115); Potassium 4.3 mmol/L (3.5-5.1); Sodium 139 mmol/L (136-145)
[2022-03-13] MEDS: Ketorolac Tromethamine 30 MG/ML VIAL IVP SCH ×4 (06:39→23:44)
[2022-03-13] MEDS ORDERED: Lactated Ringer's 500 ML IV SCH (07:00)
[2022-03-13 07:05] LABS: #Eosinphils 0.1 thou/uL (0.0-0.7); #Lymphocytes 0.9 thou/uL (1.20-3.40); #Monocytes 0.6 thou/uL (0.11-0.59); #Neutrophils 3.5 thou/uL (1.40-6.50); %Basophils 0.2 % (0.0-1.0); %Eosinophils 1.6 % (0.0-10.0); %Lymphocytes 17.3 % (21.0-51.0); %Monocytes 11.7 % (0.0-10.0); %Neutrophils 69.2 % (42.0-75.0); Mean Corpuscular HGB CONC 31.8 g/dL (32.0-36.0); Mean Corpuscular Hemoglobin 30.5 pg (27.0-31.0); Mean Corpuscular Volume 96.1 fL (78.0-98.0); Mean Platelet Volume 11.5 fL (7.4-10.4); Platelet Count 109 thou/uL (130-400); RBC Distribution Width 18.8 % (11.5-14.5); Red Blood Cell (RBC) Count 3.61 mill/uL (4.70-6.10)
[2022-03-13 07:06] LABS: Anisocytosis SLIGHT = 6-15 cells (100X) (0-5/hpf); MDiff Complete? YES
[2022-03-13] MEDS ORDERED: Non-Formulary Item 1 EACH (Revefenacin [Yupelri] 175 MCG/3 ML Vial.Neb) IH SCH (09:00)
[2022-03-13] MEDS ORDERED: predniSONE 20 MG TAB PO SCH (09:00)
[2022-03-13] MEDS ORDERED: Revefenacin [Yupelri] 175 MCG/3 ML Vial.Neb NEB SCH (09:00)
[2022-03-13] MEDS ORDERED: Non-Formulary Item 1 EACH (Magnesium Oxide [Magnesium Oxide] 400 MG Tablet) PO SCH (09:00)
[2022-03-13] MEDS: predniSONE 5 MG TAB PO SCH (09:56)
[2022-03-13] MEDS: Magnesium Oxide 400 MG TAB PO SCH (09:56)
[2022-03-13] MEDS: Sacubitril 49 MG/Valsartan 51 MG TABLET PO SCH ×2 (09:56→20:50)
[2022-03-13] MEDS: Allopurinol 300 MG TAB PO SCH (09:56)
[2022-03-13] MEDS: Carvedilol 6.25 MG TAB PO SCH ×2 (09:56→20:44)
[2022-03-13] MEDS: Dextrose 5%-Lactated Ringers 1,000 ML IV SCH ×2 (09:56→18:38)
[2022-03-13] MEDS: Gabapentin 300 MG CAP PO SCH ×2 (09:57→20:49)
[2022-03-13] MEDS: Famotidine/PF 20 mg/2ml Vial SLOW IVP SCH ×2 (09:57→21:06)
[2022-03-13] MEDS: Famotidine 20 MG TAB PO SCH ×2 (09:57→21:05)
[2022-03-13] MEDS: Colchicine 0.6 MG TAB PO SCH ×2 (09:57→21:06)
[2022-03-13] MEDS ORDERED: Acetaminophen 325 MG TAB PO PRN (10:46)
[2022-03-13] MEDS ORDERED: HYDROcodone/Acetaminophen 7.5/325 mg Tablet PO PRN (10:46)
[2022-03-13] MEDS: Potassium Chloride 8 MEQ TAB PO SCH ×2 (10:53→20:51)
[2022-03-13] MEDS: Budesonide 0.5 MG/2 ML NEB NEB SCH ×2 (11:08→18:44)
[2022-03-13] MEDS: Arformoterol 15 MCG/2 ML NEB NEB SCH ×2 (11:08→18:44)
[2022-03-13] MEDS: Rosuvastatin 20 MG TAB PO SCH (20:44)
[2022-03-13] MEDS: Ezetimibe 10 MG TAB PO SCH (20:47)
[2022-03-13] MEDS: Enoxaparin Sodium 40 MG/0.4 ML SYRINGE SC SCH (21:06)
[2022-03-14] MEDS: Ketorolac Tromethamine 30 MG/ML VIAL IVP SCH (05:30)
[2022-03-14 06:28] LABS: Anion Gap 12 mmol/L (10-20); BUN (Urea Nitrogen) 12 mg/dL (8.4-25.7); Calc. Creatinine Clearance 88 mL/min (70-130); Calcium 8.7 mg/dL (7.8-10.44); Carbon Dioxide 19 mmol/L (23-31); Chloride 108 mmol/L (98-107); Estimated GFR 56; Glucose 98 mg/dL (80-115); Potassium 3.9 mmol/L (3.5-5.1); Sodium 135 mmol/L (136-145)
[2022-03-14] MEDS: Arformoterol 15 MCG/2 ML NEB NEB SCH (07:53)
[2022-03-14] MEDS: Budesonide 0.5 MG/2 ML NEB NEB SCH (07:54)
[2022-03-14] MEDS: Carvedilol 6.25 MG TAB PO SCH (09:25)
[2022-03-14] MEDS: Allopurinol 300 MG TAB PO SCH (09:26)
[2022-03-14] MEDS: Famotidine 20 MG TAB PO SCH (09:26)
[2022-03-14] MEDS: Magnesium Oxide 400 MG TAB PO SCH (09:26)
[2022-03-14] MEDS: Gabapentin 300 MG CAP PO SCH (09:26)
[2022-03-14] MEDS: predniSONE 5 MG TAB PO SCH (09:26)
[2022-03-14] MEDS: Colchicine 0.6 MG TAB PO SCH (09:27)
[2022-03-14] MEDS: Famotidine/PF 20 mg/2ml Vial SLOW IVP SCH (09:27)
[2022-03-14] MEDS: Sacubitril 49 MG/Valsartan 51 MG TABLET PO SCH (09:27)
[2022-03-14 09:31] VITALS: BP 108/67; TEMP 98.3
[2022-03-14] MEDS: Dextrose 5%-Lactated Ringers 1,000 ML IV SCH (11:08)
[2022-03-14] MEDS: Potassium Chloride 8 MEQ TAB PO SCH (11:41)
== END 2022-03-14 11:58 | disposition home or self-care (01) | DRG 330 ==
LOC: SDC 05:35 → SURG A 12:59
PROVIDERS: ADMIT Specialist; ATTEND Specialist
PROC: 0DTF0ZZ Resection of Right Large Intestine, Open Approach (ICD-10-PCS; principal; 2022-03-12)
DX: D12.0 Benign neoplasm of cecum (principal); I48.20 Chronic atrial fibrillation, unspecified; M10.9 Gout, unspecified; E78.5 Hyperlipidemia, unspecified; G62.9 Polyneuropathy, unspecified; I25.10 Atherosclerotic heart disease of native coronary artery without angina pectoris; I50.9 Heart failure, unspecified; I11.0 Hypertensive heart disease with heart failure; J44.9 Chronic obstructive pulmonary disease, unspecified; R73.03 Prediabetes; D64.9 Anemia, unspecified; D69.6 Thrombocytopenia, unspecified; Z20.822 Contact with and (suspected) exposure to COVID-19; Z95.1 Presence of aortocoronary bypass graft; Z98.890 Other specified postprocedural states; Z79.899 Other long term (current) drug therapy; Z79.01 Long term (current) use of anticoagulants; Z90.89 Acquired absence of other organs; Z86.16 Personal history of COVID-19; Z95.0 Presence of cardiac pacemaker; Z95.5 Presence of coronary angioplasty implant and graft; Z82.49 Family history of ischemic heart disease and other diseases of the circulatory system; Z80.0 Family history of malignant neoplasm of digestive organs; Z80.8 Family history of malignant neoplasm of other organs or systems; Z87.891 Personal history of nicotine dependence
CPT/HCPCS: 36415; 80048; 85025; 88307; 90471; 90662; 94640; A4649; G0008; J0171; J0694; J1650; J1885; J2001; J2250; J2270; J2405; J2704; J3490; J7120; J7512; J7626; P9045

== ENCOUNTER 2022-03-28 09:20 | Day surgery (SDC) | payer MEDICARE, OTHER ==
[2022-03-28 12:52] VITALS: BP 122/64; TEMP 97.7
== END 2022-03-28 13:00 | disposition home or self-care (01) ==
LOC: ONC/OP 09:20
PROVIDERS: ATTEND Specialist
DX: D64.9 Anemia, unspecified (principal)
CPT/HCPCS: 36430; 86850; 86900; 86901; P9016

== ENCOUNTER 2022-07-08 09:18 | Outpatient (CLI) | payer MEDICARE, OTHER ==
[2022-07-08 10:00] LABS: Bilirubin Neg (Negative); Blood, Urine Negative (Negative); Clarity Clear (Clear); Glucose, Urine (Dipstick) >=1000 mg/dL (Negative); Ketone, Urine Negative (Negative); Leukocyte Negative (Negative); Nitrite Negative (Negative); Protein, Urine (Dipstick) Negative (Neg-Trace); Specific Gravity, Urine 1.005 (1.005-1.030); Urobilinogen Normal mg/dL (Less than 2)
[2022-07-08 10:06] LABS: Hemoglobin 12.5 g/dL (13.5-17.5); Mean Corpuscular HGB CONC 32.7 g/dL (32.0-36.0); Mean Corpuscular Hemoglobin 29.3 pg (27.0-33.0); Mean Corpuscular Volume 89.7 fl (81.2-95.1); Platelet Count 113 10x3/uL (150-450); RBC Distribution Width 18.8 % (11.5-14.5); Red Blood Cell (RBC) Count 4.26 10x6/uL (4.32-5.72)
[2022-07-08 10:12] LABS: INR-International Normal Ratio 1.5; PTT 39.1 sec (22.0-33.0); Prothrombin Time 15.6 sec (9.5-12.1)
[2022-07-08 10:28] LABS: ALT (SGPT) 88 U/L (8-55); AST (SGOT) 58 U/L (5-34); Albumin 4.1 g/dL (3.4-4.8); Alkaline Phosphatase 339 U/L (40-110); Anion Gap 13 mmol/L (10-20); BUN (Urea Nitrogen) 15 mg/dL (8.4-25.7); Bilirubin, Total 3.2 mg/dL (0.2-1.2); Calc. Creatinine Clearance 0 mL/min (70-130); Calcium 8.9 mg/dL (7.8-10.44); Carbon Dioxide 23 mmol/L (23-31); Chloride 107 mmol/L (98-107); Estimated GFR 68; Globulin 2.2 g/dL (2.4-3.5); Glucose 118 mg/dL (80-115); Potassium 4.5 mmol/L (3.5-5.1); Protein, Total 6.3 g/dL (5.8-8.1); Sodium 138 mmol/L (136-145)
== END 2022-07-08 09:19 | disposition home or self-care (01) ==
LOC: LABBT 09:18
PROVIDERS: ATTEND Internal Medicine Cardiovascular Disease
DX: Z01.812 Encounter for preprocedural laboratory examination (principal); I48.19 Other persistent atrial fibrillation
CPT/HCPCS: 80053; 81003; 85027; 85610; 85730

== ENCOUNTER 2022-09-04 05:22 | Inpatient (IN) | payer MEDICARE, OTHER ==
[2022-09-04] MEDS ORDERED: niCARdipine 25 MG/10 ML SDV ONE (06:38)
[2022-09-04] MEDS ORDERED: Norepinephrine 4 MG/4 ML VIAL ONE (06:38)
[2022-09-04] MEDS ORDERED: SUGAMMADEX SODIUM 200 MG/2 ML VIAL ONE (06:38)
[2022-09-04] MEDS ORDERED: Heparin 10,000 UNITS/ 10 ML VIAL ONE (06:52)
[2022-09-04] MEDS ORDERED: CEFAZOLIN 1 GM VIAL ONE (06:52)
[2022-09-04] MEDS ORDERED: Protamine Sulfate 50 MG/5 ML VIAL ONE (06:52)
[2022-09-04] MEDS ORDERED: fentaNYL 50 mcg/mL 1 mL Vial ONE (06:58)
[2022-09-04] MEDS ORDERED: Ondansetron PF 4 MG/2 ML Vial ONE (08:13)
[2022-09-04] MEDS ORDERED: PROPOFOL 200 MG/20 ML VIAL ONE (08:13)
[2022-09-04] MEDS ORDERED: Lidocaine 1% PF 5 ML VIAL ONE (08:13)
[2022-09-04] MEDS ORDERED: Rocuronium Bromide 10 MG/ML (10ML VIAL) ONE (08:13)
[2022-09-04] MEDS ORDERED: Dexamethasone 20 MG/5 ML VIAL ONE (08:13)
[2022-09-04] MEDS ORDERED: Albuterol 200 PUFF (6.7GM INHALER) INH PRN (10:58)
[2022-09-04] MEDS ORDERED: Acetaminophen/Codeine 30-300mg Tablet PO PRN ×2 (11:00)
[2022-09-04] MEDS ORDERED: Bumetanide 1 MG TAB PO PRN ×2 (11:00)
[2022-09-04] MEDS ORDERED: Ipratropium/Albuterol 3 ML NEB NEB PRN (11:05)
[2022-09-04] MEDS ORDERED: Nitroglycerin 0.4 MG TAB (25 Tab Bottle) SL PRN (11:06)
[2022-09-04] MEDS ORDERED: Iopamidol 370 76% 100 ML VIAL ONE (12:30)
[2022-09-04] MEDS ORDERED: Cephalexin 250 MG CAP PO SCH (15:00)
[2022-09-04 15:35] VITALS: BMI 33.0
[2022-09-04] MEDS: Ferrous Sulfate 325 MG TAB PO SCH (16:18)
[2022-09-04] MEDS ORDERED: Rivaroxaban 10 MG TAB PO SCH (17:00)
[2022-09-04] MEDS: Budesonide 0.5 MG/2 ML NEB NEB SCH (19:17)
[2022-09-04] MEDS ORDERED: Ezetimibe 10 MG TAB PO SCH (21:00)
[2022-09-04] MEDS ORDERED: Rosuvastatin 20 MG TAB PO SCH (21:00)
[2022-09-04] MEDS: Potassium Chloride 8 MEQ TAB PO SCH (21:37)
[2022-09-04] MEDS: Colchicine 0.6 MG TAB PO SCH (21:37)
[2022-09-04] MEDS: Gabapentin 300 MG CAP PO SCH (21:37)
[2022-09-04] MEDS: Carvedilol 6.25 MG TAB PO SCH (21:37)
[2022-09-04] MEDS: Sacubitril 24MG/Valsartan 26 MG TAB PO SCH (21:38)
[2022-09-05] MEDS: Budesonide 0.5 MG/2 ML NEB NEB SCH (08:05)
[2022-09-05] MEDS ORDERED: Multivitamin W/ Minerals 1 TAB PO SCH (09:00)
[2022-09-05] MEDS ORDERED: Aspirin Chewable 81 MG TAB PO SCH (09:00)
[2022-09-05] MEDS ORDERED: YUPELRI INH SCH (09:00)
[2022-09-05] MEDS ORDERED: Empagliflozin 25 MG TAB PO SCH (09:00)
[2022-09-05] MEDS ORDERED: Allopurinol 300 MG TAB PO SCH (09:00)
[2022-09-05] MEDS ORDERED: Magnesium Oxide 400 MG TAB PO SCH (09:00)
[2022-09-05] MEDS ORDERED: Isosorbide Dinitrate 5 MG TAB PO SCH (09:00)
[2022-09-05] MEDS ORDERED: Calcitriol 0.25 MCG CAP PO SCH (09:00)
[2022-09-05] MEDS ORDERED: predniSONE 5 MG TAB PO SCH (09:00)
[2022-09-05] MEDS: Gabapentin 300 MG CAP PO SCH (09:26)
[2022-09-05] MEDS: Colchicine 0.6 MG TAB PO SCH (09:26)
[2022-09-05] MEDS: Carvedilol 6.25 MG TAB PO SCH (09:26)
[2022-09-05] MEDS: Ferrous Sulfate 325 MG TAB PO SCH (09:27)
[2022-09-05] MEDS: Potassium Chloride 8 MEQ TAB PO SCH (09:27)
[2022-09-05] MEDS: Sacubitril 24MG/Valsartan 26 MG TAB PO SCH (09:27)
[2022-09-05 11:11] VITALS: BP 155/80; TEMP 96.7
== END 2022-09-05 11:28 | disposition home or self-care (01) | DRG 274 ==
LOC: SURG A 05:51 → 2NO 15:23
PROVIDERS: ADMIT Internal Medicine Cardiovascular Disease; ATTEND Internal Medicine Cardiovascular Disease
PROC: 02L73DK Occlusion of Left Atrial Appendage with Intraluminal Device, Percutaneous Approach (ICD-10-PCS; principal; 2022-09-04)
PROC: B24BZZ4 Ultrasonography of Heart with Aorta, Transesophageal (ICD-10-PCS; 2022-09-04)
DX: I48.91 Unspecified atrial fibrillation (principal); K21.9 Gastro-esophageal reflux disease without esophagitis; Z79.01 Long term (current) use of anticoagulants; Z90.89 Acquired absence of other organs; Z95.1 Presence of aortocoronary bypass graft; Z98.890 Other specified postprocedural states; Z95.5 Presence of coronary angioplasty implant and graft
CPT/HCPCS: 33340; 85347; 86850; 86900; 86901; 93005; 93010; 93306; 93312; 94640; C1759; C1760; C1817; C1894; J0690; J1100; J1644; J2405; J2704; J2720; J3010; J7512; J7626; Q9967

== ENCOUNTER 2024-03-17 12:30 | Outpatient (CLI) | payer MEDICARE, OTHER | END 2024-03-17 12:31 | disposition home or self-care (01) | LOC: BICMAMMO 12:30 | PROVIDERS: ATTEND Internal Medicine Rheumatology | DX: M81.0 Age-related osteoporosis without current pathological fracture (principal); M85.851 Other specified disorders of bone density and structure, right thigh | CPT/HCPCS: 77080 ==